=== PATIENT | male | born 1960 | race Caucasian/White ===

== ENCOUNTER 2016-03-31 08:40 | Outpatient (CLI) | payer OTHER | END 2016-03-31 10:00 | disposition home or self-care (01) | LOC: VM.RT 08:40 → VM.CARSTR 08:40 | PROVIDERS: ATTEND Internal Medicine | DX: R07.9 Chest pain, unspecified (principal) | CPT/HCPCS: 93017 ==

== ENCOUNTER 2020-12-15 15:31 | Emergency (ER) | payer BC, OTHER ==
[2020-12-15 15:48] VITALS: BP 144/94; PULSE 99
[2020-12-15] MEDS ORDERED: Orphenadrine 60 MG/2 ML Inj IM ONE (16:00)
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
[2020-12-15] MEDS ORDERED: Take Home: Cyclobenzaprine 10 MG Tab, 4 Tab Pack PO ONE (16:51)
== END 2020-12-15 17:00 | disposition home or self-care (01) ==
LOC: VM.ED 15:31
DX: S16.1XXA Strain of muscle, fascia and tendon at neck level, initial encounter (principal); S39.012A Strain of muscle, fascia and tendon of lower back, initial encounter; E66.9 Obesity, unspecified; Z88.5 Allergy status to narcotic agent; Z91.030 Bee allergy status; Z79.82 Long term (current) use of aspirin; Z79.899 Other long term (current) drug therapy; Y04.0XXA Assault by unarmed brawl or fight, initial encounter
CPT/HCPCS: 72040; 72100; 96372; 99283; 99283-25; A9270-GY; J2360

== ENCOUNTER 2021-03-24 11:37 | Inpatient (IN) | payer OTHER ==
[2021-03-24] MEDS ORDERED: Sodium Chloride 0.9% 1,000 ML IV SCH (12:00)
[2021-03-24 12:27] LABS: CHLORIDE,CL 100 mmol/L (98-107); SODIUM,NA 135 mmol/L (136-145)
--- NOTE | 2021-03-24 12:27 | EDM.PDOC ---
ED HPI GENERAL MEDICAL PROBLEM - General Chief Complaint: Respiratory Problem Stated Complaint: FEVER, COUGH, SORE THROAT Time Seen by Provider: 03/24/21 11:40 Source of Information: Reports: Patient History Limitations: Reports: No Limitations - History of Present Illness INITIAL COMMENTS - FREE TEXT/NARRATIVE: HAd COVID dx on 03/07/21 and monoclonal antibodies. States did well and went back to work. Now presents to ER with cough, fever, weakness and BP was low on arrival. Onset Date: 03/21/21 Duration: Getting Worse Location: Reports: Other (no pain) Worsens with: Reports: Movement Associated Symptoms: Reports: Cough, Fever/Chills, Shortness of Breath, Weakness - Related Data Allergies Allergy/AdvReac Type Severity Reaction Status Date / Time hydromorphone [From Dilaudid] Allergy Hypotension Verified 03/24/21 12:34 venom-honey bee Allergy Anaphylactic Verified 03/24/21 12:34 [bee venom (honey bee)] Shock fentanyl AdvReac Hypotension Verified 03/24/21 12:34 hydrocodone AdvReac Tachycardia Verified 03/24/21 12:34 Home Meds: Home Meds Aspirin [Low Dose Aspirin EC] 81 mg PO DAILY 07/18/13 [History] Glucosam/Chond/Collagen/Hyalur [Glucosamine Chondroitin] 1 each PO DAILY 07/18/13 [History] Nitroglycerin [Nitrostat] 1 tab SL ASDIRECTED PRN 07/18/13 [History] Folic Acid 1 mg PO DAILY 03/24/21 [History] Magnesium Oxide [Magnesium] 500 mg PO DAILY 03/24/21 [History] Methotrexate 2.5 mg PO Q7D 03/24/21 [History] Metoprolol Succinate [Toprol Xl] 100 mg PO DAILY 03/24/21 [History] atorvaSTATin Calcium [Lipitor] 20 mg PO BEDTIME 03/24/21 [History] lisinopriL [Lisinopril] 10 mg PO DAILY 03/24/21 [History] predniSONE [Prednisone] 2 mg PO DAILY 03/24/21 [History] Past Medical History - Past Health History Medical/Surgical History: Denies Medical/Surgical History Cardiovascular History: Reports: High Cholesterol, Hypertension Musculoskeletal History: Reports: Back Pain, Chronic Endocrine/Metabolic History: Reports: Obesity/BMI 30+ - Past Surgical History Musculoskeletal Surgical History: Reports: Other (See Below) Other Musculoskeletal Surgeries/Procedures:: Remote history of back surgery ED ROS GENERAL - Review of Systems Review Of Systems: See Below Constitutional: Reports: Fever, Malaise HEENT: Reports: No Symptoms Respiratory: Reports: Shortness of Breath, Cough Cardiovascular: Reports: Blood Pressure Problem Endocrine: Reports: No Symptoms GI/Abdominal: Reports: No Symptoms : Reports: No Symptoms Musculoskeletal: Reports: No Symptoms Skin: Reports: No Symptoms Neurological: Reports: No Symptoms Psychiatric: Reports: No Symptoms Hematologic/Lymphatic: Reports: No Symptoms Immunologic: Reports: No Symptoms ED EXAM, GENERAL - Physical Exam Exam: See Below Exam Limited By: No Limitations General Appearance: Alert, No Apparent Distress, Other (general appearance of not feeling well) Eye Exam: Bilateral Eye: EOMI Ears: Normal External Exam Nose: No Blood Throat/Mouth: Normal Voice, No Airway Compromise Head: Atraumatic, Normocephalic Neck: Normal Inspection, Supple, Non-Tender, Full Range of Motion Respiratory/Chest: No Respiratory Distress, Chest Non-Tender (diminished, coarse), Decreased Breath Sounds (diminished breath sounds, ) Cardiovascular: Regular Rate, Rhythm GI/Abdominal: Soft, Non-Tender, No Distention Back Exam: Full Range of Motion Extremities: Normal Range of Motion, Other (trace pretibial edema) Neurological: Alert, Oriented Psychiatric: Normal Affect, Normal Mood Skin Exam: Warm, Dry, Intact, Normal Color, No Rash Lymphatic: No Adenopathy #1 Interpretation Rhythm: NSR QRS: RBBB Course - Vital Signs Last Recorded V/S: Last Vital Signs Temp 100.6 F 03/24/21 14:10 Pulse 63 03/24/21 14:16 Resp 20 03/24/21 14:16 BP 105/43 L 03/24/21 14:16 Pulse Ox 90 L 03/24/21 14:16 - Orders/Labs/Meds Orders: Active Orders 24 hr Category Date Time Status CULTURE BLOOD [BC] Stat Lab 03/24/21 14:54 Received CULTURE BLOOD [BC] Stat Lab 03/24/21 15:00 Received Sodium Chloride 0.9% [Normal Saline] 1,000 ml Med 03/24/21 12:00 Active IV ASDIRECTED Blood Culture x2 Reflex Set [OM.PC] Stat Oth 03/24/21 14:46 Ordered Medication Orders Sodium Chloride (Normal Saline) 1,000 mls @ 250 mls/hr IV ASDIRECTED ELAYNE Last Admin: 03/24/21 11:55 Dose: 250 mls/hr Documented by: INDU Labs: Laboratory Tests 03/24/21 03/24/21 03/24/21 Range/Units 11:49 11:49 11:49 WBC 8.8 (4.0-10.0) x10^3/uL RBC 5.42 (4.5-6.0) x10^6/uL Hgb 16.6 (14.0-18.0) g/dL Hct 49.0 (40.0-52.0) % MCV 90.4 (78.0-93.0) fL MCH 30.6 (26.0-32.0) pg MCHC 33.9 (32.0-36.0) g/dL RDW Coeff of Mildred 13.3 (10.0-15.0) % Plt Count 173 (130-400) x10^3/uL Immature Gran % (Auto) 1.10 H (0.00-0.43) % Neut % (Auto) 81.9 H (50.0-80.0) % Lymph % (Auto) 12.5 L (25.0-50.0) % Gila % (Auto) 4.2 (2.0-11.0) % Eos % (Auto) 0.2 (0.0-4.0) % Baso % (Auto) 0.1 L (0.2-1.2) % Neut # (Auto) 7.2 (1.8-7.7) x10^3/uL Lymph # (Auto) 1.1 (1.0-4.8) x10^3/uL Gila # (Auto) 0.4 (0.0-0.8) x10^3/uL Eos # (Auto) 0.0 (0.0-0.5) x10^3/uL Baso # (Auto) 0.0 (0.0-0.2) x10^3/uL Immature Gran # (Auto) 0.10 H (0.00-0.07) x10^3/uL D-Dimer, Quantitative (<=0.58) mg/LFEU Sodium 135 L (136-145) mmol/L Potassium 3.6 (3.5-5.1) mmol/L Chloride 100 (98-107) mmol/L Carbon Dioxide 30 (21-32) mmol/L Anion Gap 8.6 (5-15) mmol/L BUN 23 H (7-18) mg/dL Creatinine 1.3 (0.70-1.30) mg/dL Est Cr Clr Drug Dosing TNP Estimated GFR (MDRD) 56 Glucose 79 (70-99) mg/dL Lactic Acid 1.2 (0.4-2.0) mmol/L Calcium 8.8 (8.5-10.1) mg/dL Corrected Calcium 9.6 (8.5-10.1) mg/dL Total Bilirubin 0.5 (0.2-1.0) mg/dL AST 48 H (15-37) U/L ALT 103 H (16-63) U/L Alkaline Phosphatase 97 (46-116) U/L Troponin I High Sens (<=76) ng/L Total Protein 7.2 (6.4-8.2) g/dL Albumin 3.0 L (3.4-5.0) g/dL Globulin 4.2 Albumin/Globulin Ratio 0.71 Procalcitonin (0.1-0.50) ng/mL Influenza Type A RNA (NEGATIVE) RSV RNA (INAAT) (NEGATIVE) Influenza Type B RNA (NEGATIVE) SARS-CoV-2 RNA (REJI) (NEGATIVE) 03/24/21 03/24/21 03/24/21 Range/Units 11:49 11:49 11:49 WBC (4.0-10.0) x10^3/uL RBC (4.5-6.0) x10^6/uL Hgb (14.0-18.0) g/dL Hct (40.0-52.0) % MCV (78.0-93.0) fL MCH (26.0-32.0) pg MCHC (32.0-36.0) g/dL RDW Coeff of Mildred (10.0-15.0) % Plt Count (130-400) x10^3/uL Immature Gran % (Auto) (0.00-0.43) % Neut % (Auto) (50.0-80.0) % Lymph % (Auto) (25.0-50.0) % Gila % (Auto) (2.0-11.0) % Eos % (Auto) (0.0-4.0) % Baso % (Auto) (0.2-1.2) % Neut # (Auto) (1.8-7.7) x10^3/uL Lymph # (Auto) (1.0-4.8) x10^3/uL Gila # (Auto) (0.0-0.8) x10^3/uL Eos # (Auto) (0.0-0.5) x10^3/uL Baso # (Auto) (0.0-0.2) x10^3/uL Immature Gran # (Auto) (0.00-0.07) x10^3/uL D-Dimer, Quantitative 2.61 H (<=0.58) mg/LFEU Sodium (136-145) mmol/L Potassium (3.5-5.1) mmol/L Chloride (98-107) mmol/L Carbon Dioxide (21-32) mmol/L Anion Gap (5-15) mmol/L BUN (7-18) mg/dL Creatinine (0.70-1.30) mg/dL Est Cr Clr Drug Dosing Estimated GFR (MDRD) Glucose (70-99) mg/dL Lactic Acid (0.4-2.0) mmol/L Calcium (8.5-10.1) mg/dL Corrected Calcium (8.5-10.1) mg/dL Total Bilirubin (0.2-1.0) mg/dL AST (15-37) U/L ALT (16-63) U/L Alkaline Phosphatase (46-116) U/L Troponin I High Sens 43 (<=76) ng/L Total Protein (6.4-8.2) g/dL Albumin (3.4-5.0) g/dL Globulin Albumin/Globulin Ratio Procalcitonin <0.05 L (0.1-0.50) ng/mL Influenza Type A RNA (NEGATIVE) RSV RNA (INAAT) (NEGATIVE) Influenza Type B RNA (NEGATIVE) SARS-CoV-2 RNA (REJI) (NEGATIVE) 03/24/21 Range/Units 12:03 WBC (4.0-10.0) x10^3/uL RBC (4.5-6.0) x10^6/uL Hgb (14.0-18.0) g/dL Hct (40.0-52.0) % MCV (78.0-93.0) fL MCH (26.0-32.0) pg MCHC (32.0-36.0) g/dL RDW Coeff of Mildred (10.0-15.0) % Plt Count (130-400) x10^3/uL Immature Gran % (Auto) (0.00-0.43) % Neut % (Auto) (50.0-80.0) % Lymph % (Auto) (25.0-50.0) % Gila % (Auto) (2.0-11.0) % Eos % (Auto) (0.0-4.0) % Baso % (Auto) (0.2-1.2) % Neut # (Auto) (1.8-7.7) x10^3/uL Lymph # (Auto) (1.0-4.8) x10^3/uL [place] # (Auto) (0.0-0.8) x10^3/uL Eos # (Auto) (0.0-0.5) x10^3/uL Baso # (Auto) (0.0-0.2) x10^3/uL Immature Gran # (Auto) (0.00-0.07) x10^3/uL D-Dimer, Quantitative (<=0.58) mg/LFEU Sodium (136-145) mmol/L Potassium (3.5-5.1) mmol/L Chloride (98-107) mmol/L Carbon Dioxide (21-32) mmol/L Anion Gap (5-15) mmol/L BUN (7-18) mg/dL Creatinine (0.70-1.30) mg/dL Est Cr Clr Drug Dosing Estimated GFR (MDRD) Glucose (70-99) mg/dL Lactic Acid (0.4-2.0) mmol/L Calcium (8.5-10.1) mg/dL Corrected Calcium (8.5-10.1) mg/dL Total Bilirubin (0.2-1.0) mg/dL AST (15-37) U/L ALT (16-63) U/L Alkaline Phosphatase (46-116) U/L Troponin I High Sens (<=76) ng/L Total Protein (6.4-8.2) g/dL Albumin (3.4-5.0) g/dL Globulin Albumin/Globulin Ratio Procalcitonin (0.1-0.50) ng/mL Influenza Type A RNA Negative (NEGATIVE) RSV RNA (INAAT) Negative (NEGATIVE) Influenza Type B RNA Negative (NEGATIVE) SARS-CoV-2 RNA (REJI) Positive H (NEGATIVE) Meds: Medications Generic Name Dose Route Start Last Admin Trade Name Freq PRN Reason Stop Dose Admin Sodium Chloride 1,000 mls @ 250 mls/hr 03/24/21 12:00 03/24/21 11:55 Normal Saline IV 250 mls/hr ASDIRECTED ELAYNE Administration Discontinued Medications Generic Name Dose Route Start Last Admin Trade Name Freq PRN Reason Stop Dose Admin Dexamethasone 4 mg 03/24/21 14:20 03/24/21 14:23 Dexamethasone 4 Mg/Ml Sdv IVPUSH 03/24/21 14:21 4 mg ONETIME ONE Administration Ibuprofen 400 mg 03/24/21 13:03 03/24/21 13:10 Ibuprofen 200 Mg Tab PO 03/24/21 13:04 400 mg ONETIME ONE Administration Iopamidol 100 ml 03/24/21 14:00 03/24/21 14:04 Iopamidol 755 Mg/Ml 100 Ml Bottle IVPUSH 03/24/21 14:01 100 ml ONETIME ONE Administration - Re-Assessments/Exams Free Text/Narrative Re-Assessment/Exam: 03/24/21 12:59 D-dimer 2.61, pt remains hypotensive, ordering CT to r/o PE. Discussed case with Dr. Toya Guallpa who is seeing [facility] patients today; agrees with plan. 03/24/21 15:07 Dr. Toya Guallpa accepted pt for admission. Departure - Departure Time of Disposition: 15:10 Disposition: Admitted As Inpatient 66 Condition: Fair Clinical Impression: Hypotension Qualifiers: Hypotension type: unspecified hypotension type Qualified Code(s): I95.9 - Hypotension, unspecified Pneumonia Qualifiers: Pneumonia type: due to COVID-19 virus Qualified Code(s): U07.1 - COVID-19 - Discharge Information Sepsis Event Note (ED) - Focused Exam Vital Signs: Vital Signs Temp Temp Pulse Resp BP Pulse Ox 12/27/21 14:16 63 20 105/43 L 90 L 03/24/21 14:10 100.6 F 03/24/21 14:05 100.6 F 03/24/21 14:01 63 20 95/43 L 91 L 03/24/21 13:01 101.3 F H 03/24/21 12:51 60 24 H 94/48 L 94 L 03/24/21 12:06 68 24 H 106/59 L 92 L 03/24/21 11:40 100.0 F 77 38 H 93/58 L 95 - Problem List & Annotations (1) Hypotension SNOMED Code(s): 75132257 Code(s): I95.9 - HYPOTENSION, UNSPECIFIED Status: Acute Current Visit: Y es Qualifiers: Hypotension type: unspecified hypotension type Qualified Code(s): I95.9 - Hypotension, unspecified (2) Pneumonia SNOMED Code(s): 631916377 Code(s): J18.9 - PNEUMONIA, UNSPECIFIED ORGANISM Status: Acute Current Visit: Yes Qualifiers: Pneumonia type: due to COVID-19 virus Qualified Code(s): U07.1 - COVID-19; J12.82 - Pneumonia due to coronavirus disease 2019 - Problem List Review Problem List Initiated/Reviewed/Updated: Yes - My Orders Last 24 Hours: My Active Orders 03/24/21 12:00 Sodium Chloride 0.9% [Normal Saline] 1,000 ml IV ASDIRECTED - Assessment/Plan Last 24 Hours: My Active Orders 03/24/21 12:00 Sodium Chloride 0.9% [Normal Saline] 1,000 ml IV ASDIRECTED
[2021-03-24 12:28] LABS: ANION GAP 8.6 mmol/L (5-15)
[2021-03-24 12:46] LABS: CORONAVIRUS COVID-19 NAA POSITIVE (NEGATIVE); RESPIRATORY SYNCYTIAL VIR NAA NEGATIVE (NEGATIVE)
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
[2021-03-24] MEDS ORDERED: Ibuprofen 200 MG Tab PO ONE (13:03)
[2021-03-24] MEDS ORDERED: Iopamidol 755 Mg/ML 100 ML Bottle IVPUSH ONE (14:00)
--- NOTE | 2021-03-24 14:11 | CT ---
[id number] CT/CTA Chest Exam: CTA Chest Clinical Data: POSITIVE D-DIMER HYPOTENSION COVID COMPARISON: NO PREVIOUS SIMILAR EXAM IS AVAILABLE FINDINGS: Extensive bilateral infiltrates are seen There is no pulmonary embolus The is no mediastinal mass or adenopathy IMPRESSION: BILATERAL PNEUMONIA NO PULMONARY EMBOLI Mohan King MD 03/24/21 6330 Thank you for allowing us to participate in the care of your patient.
[2021-03-24] MEDS ORDERED: Dexamethasone 4 MG/ML SDV IVPUSH ONE (14:20)
[2021-03-24] MEDS ORDERED: Nitroglycerin 0.4 MG Tab.SL SL PRN (15:17)
[2021-03-24] MEDS ORDERED: Ondansetron 4 MG Tab.DIS PO PRN (15:21)
[2021-03-24] MEDS ORDERED: Acetaminophen 325 MG Tab PO PRN (15:21)
[2021-03-24] MEDS: Zinc Sulfate 220 MG Cap PO SCH (16:27)
[2021-03-24] MEDS: Cholecalciferol (Vitamin D3) 25 MCG Tab PO SCH (16:27)
[2021-03-24] MEDS: dexAMETHasone 2 MG, dexAMETHasone 4 MG PO SCH ×2 (16:27)
[2021-03-24] MEDS: Ascorbic Acid 500 MG Tab PO SCH ×2 (16:27→20:29)
[2021-03-24] MEDS: Azithromycin 250 MG Tab PO SCH (16:28)
[2021-03-24] MEDS: cefTRIAXone 1 GM Vial IVPUSH SCH (16:28)
[2021-03-24] MEDS: Enoxaparin 40 MG/0.4 ML Syringe SUBCUT SCH (18:08)
[2021-03-24] MEDS: atorvaSTATin 10 MG Tab PO SCH (20:29)
--- NOTE | 2021-03-24 22:35 | HP ---
CHIEF COMPLAINT: Fever, cough, and sore throat. HISTORY OF PRESENT ILLNESS: This is a 61-year-old male with history of COVID- 19, who received monoclonal antibodies on 03/07. He was feeling much better after a few days and in fact was able to return to work, then 3 to 4 days ago, around 03/20, he started getting worse again. He did feel lightheaded and dizzy at times. He has been able to eat and drink. He has actually been quite thirsty and drinking a lot. He did get prescribed dexamethasone 6 mg daily and he finished that a couple of days ago. Even though he has underlying rheumatoid arthritis, he continued with methotrexate and took the 25 mg weekly dose last , also the ; and he restarted his 2 mg daily prednisone dose that he normally takes. He did not take his blood pressure pills this morning, but came into the ER. His blood pressure was 80 systolic. He got 1 L of IV fluids. He feels short of breath, but he did not have sats below 90% and he had a 101.3 fever. The patient did get ibuprofen in the ER due to elevated D-dimer of 2.6. He had a CT PE protocol, which did show the bilateral COVID pneumonia. He has had a procalcitonin that is normal. COVID test remains positive. He has not had any burning or pain with urination. No other symptoms of infection. He has not been vaccinated for COVID or influenza. ALLERGIES: Include hydromorphone, venom from honey bees, fentanyl, and hydrocodone. MEDICATIONS: His medication list is reviewed from home. He is on glucosamine, lisinopril 10 mg daily, methotrexate 25 mg every 7 days, prednisone 2 mg daily, aspirin 81 mg daily, Lipitor 20 mg at bedtime, folic acid 1 mg daily, magnesium 500 mg daily, metoprolol 100 mg daily, and nitroglycerin as needed. PAST MEDICAL HISTORY: He denies any history of heart attacks. He has had a negative angiogram in 2013. He has had essential hypertension. He has rheumatoid arthritis, on the methotrexate. He has obesity. He has history of hyperlipidemia. He has erectile dysfunction. PAST SURGICAL HISTORY: He has had to have hand surgery. He has had previous colonoscopies. He has had a remote back surgery. FAMILY HISTORY: His son was recently hospitalized with COVID also. SOCIAL HISTORY: The patient denies any excessive alcohol use; did say maybe 1 bourbon daily. No smoking. 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 He is . REVIEW OF SYSTEMS: General: The patient stated he was not overly fatigued. He got his energy back after his initial COVID. He has had the fever. HEENT: No trouble swallowing. Cardiac: No chest pain. No palpitations. Respiratory: He continues to have shortness of breath. No worsening of cough. Abdominal: He has had some diarrhea for the past 2 weeks, 3 to 4 times a day, ever since he has had COVID. No blood in the stool. No black stools. Hemorrhoids have been bothering him. Otherwise, all systems reviewed and found to be negative unless otherwise stated. LABORATORY DATA: Lab work shows white count normal at 8.8, hemoglobin 16.6, platelets 173. D-dimer 2.6. Sodium 135, potassium 3.6, chloride 100, bicarb 30, BUN 23, creatinine 1.3, glucose 79, lactic 1.2, bilirubin 0.5, AST 48, ALT 103, alkaline phosphatase 97, albumin 3. CRP 5.5. Procalcitonin less than 0.05. RSV influenza negative. Chest x-ray, very suspicious for COVID pneumonia. CT also suspicious for COVID pneumonia, negative for PE. ASSESSMENT: 1. COVID-19, day 17 from his monoclonal antibody infusion, but the patient is immunosuppressed. Discussed with the patient and infectious disease specialist in [place]. Recommendations were for remdesivir, the patient absolutely refuses; and baricitinib, which will be given 4 mg daily for 14 days or until discharge. We will repeat lab work including another C- reactive protein and procalcitonin tomorrow. 2. Fever, possibly secondary bacterial infection given this far out and immunosuppression. We will give him intravenous Rocephin and Zithromax. Blood cultures, sputum cultures will be sent. Urinalysis ordered. 3. Hypotension. Could be an element of adrenal insufficiency given he has been on steroids; however, he is only on 2 mg of prednisone chronically. We will give him the dexamethasone 6 mg daily for 10 days, but if further hypotensive, I will put him on hydrocortisone. 4. Essential hypertension. Blood pressure is low. Hold lisinopril. Continue metoprolol, but only 50 mg daily with holding parameters. The patient has no history of atrial fibrillation or tachycardia. 5. Hyperlipidemia. Continue his Lipitor. Liver enzymes are only mildly elevated. 6. Mild liver function test elevation. Repeat liver function tests in the morning. This could be related to recent COVID infection. 7. Obesity. 8. Rheumatoid arthritis. We will hold the methotrexate. PLAN: The patient will be admitted to acute cares. He got 1 L of IV fluids. We will not order any further IV fluids. We will monitor him closely for his respiratory status and blood pressure. He will be on Lovenox for DVT prophylaxis. He will be on the baricitinib for his COVID-19 along with dexamethasone given his underlying immunosuppression and RA. I will also start him on vitamin D, zinc, and vitamin C prophylactically. Anticipate the patient will need at least a 2-night stay. He is agreeable with this plan. Code level 1. MKA: 03/24/2021 15:43:58 MODL: 03/24/2021 22:29:52 /[id number]
[2021-03-25 07:32] LABS: CHLORIDE,CL 103 mmol/L (98-107); SODIUM,NA 137 mmol/L (136-145)
[2021-03-25 07:37] LABS: ANION GAP 13.5 mmol/L (5-15)
[2021-03-25] MEDS ORDERED: METOPROLOL SUCCINATE 100 MG PO SCH (08:00)
[2021-03-25] MEDS: dexAMETHasone 2 MG, dexAMETHasone 4 MG PO SCH ×2 (08:16)
[2021-03-25] MEDS: Cholecalciferol (Vitamin D3) 25 MCG Tab PO SCH (08:17)
[2021-03-25] MEDS: Ascorbic Acid 500 MG Tab PO SCH ×2 (08:17→20:39)
[2021-03-25] MEDS: Aspirin 81 MG Tab.EC PO SCH (08:17)
[2021-03-25] MEDS: Magnesium Oxide 400 MG Tab PO SCH (08:17)
[2021-03-25] MEDS: Zinc Sulfate 220 MG Cap PO SCH (08:17)
[2021-03-25] MEDS: Folic Acid 1 MG Tab PO SCH (08:17)
[2021-03-25] MEDS: Metoprolol Succinate 50 MG Tab.ER PO SCH ×2 (08:19→08:24)
--- NOTE | 2021-03-25 08:43 | PCM.PN ---
- General Info Date of Service: 03/25/21 Admission Dx/Problem (Free Text): Covid 19 - Day !7 Immunosuppressed RA Hypertension Subjective Update: Patient continues to feel short of breath and weak. Appetite is normal. Unaware of fevers or chills. - Review of Systems General: Reports: Weakness HEENT: Reports: No Symptoms Pulmonary: Reports: Shortness of Breath, Cough Cardiovascular: Denies: Chest Pain Gastrointestinal: Denies: Abdominal Pain Genitourinary: Reports: No Symptoms Musculoskeletal: Reports: Joint Pain Skin: Reports: No Symptoms Neurological: Reports: No Symptoms, Weakness Psychiatric: Reports: No Symptoms - Patient Data Vitals - Most Recent: Last Vital Signs Temp 36.6 C 03/25/21 06:00 Pulse 52 L 03/25/21 08:24 Resp 14 03/25/21 06:00 BP 124/74 03/25/21 08:24 Pulse Ox 90 L 03/25/21 06:00 Weight - Most Recent: 130.136 kg I&O - Last 24 Hours: Intake & Output 03/24/21 03/25/21 03/25/21 22:59 06:59 14:59 Intake Total 120 Balance 120 Lab Results Last 24 Hours: Laboratory Results - last 24 hr 03/24/21 03/24/21 03/24/21 Range/Units 11:49 11:49 11:49 WBC 8.8 (4.0-10.0) x10^3/uL RBC 5.42 (4.5-6.0) x10^6/uL Hgb 16.6 (14.0-18.0) g/dL Hct 49.0 (40.0-52.0) % MCV 90.4 (78.0-93.0) fL MCH 30.6 (26.0-32.0) pg MCHC 33.9 (32.0-36.0) g/dL RDW Coeff of Mildred 13.3 (10.0-15.0) % Plt Count 173 (130-400) x10^3/uL Immature Gran % (Auto) 1.10 H (0.00-0.43) % Neut % (Auto) 81.9 H (50.0-80.0) % Lymph % (Auto) 12.5 L (25.0-50.0) % [place] % (Auto) 4.2 (2.0-11.0) % Eos % (Auto) 0.2 (0.0-4.0) % Baso % (Auto) 0.1 L (0.2-1.2) % Neut # (Auto) 7.2 (1.8-7.7) x10^3/uL Lymph # (Auto) 1.1 (1.0-4.8) x10^3/uL [place] # (Auto) 0.4 (0.0-0.8) x10^3/uL Eos # (Auto) 0.0 (0.0-0.5) x10^3/uL Baso # (Auto) 0.0 (0.0-0.2) x10^3/uL Immature Gran # (Auto) 0.10 H (0.00-0.07) x10^3/uL D-Dimer, Quantitative (<=0.58) mg/LFEU Sodium 135 L (136-145) mmol/L Potassium 3.6 (3.5-5.1) mmol/L Chloride 100 (98-107) mmol/L Carbon Dioxide 30 (21-32) mmol/L Anion Gap 8.6 (5-15) mmol/L BUN 23 H (7-18) mg/dL Creatinine 1.3 (0.70-1.30) mg/dL Est Cr Clr Drug Dosing TNP Estimated GFR (MDRD) 56 Glucose 79 (70-99) mg/dL Lactic Acid 1.2 (0.4-2.0) mmol/L Calcium 8.8 (8.5-10.1) mg/dL Corrected Calcium 9.6 (8.5-10.1) mg/dL Total Bilirubin 0.5 (0.2-1.0) mg/dL AST 48 H (15-37) U/L ALT 103 H (16-63) U/L Alkaline Phosphatase 97 (46-116) U/L Troponin I High Sens (<=76) ng/L C-Reactive Protein (<=0.9) mg/dL Total Protein 7.2 (6.4-8.2) g/dL Albumin 3.0 L (3.4-5.0) g/dL Globulin 4.2 Albumin/Globulin Ratio 0.71 Procalcitonin (0.1-0.50) ng/mL Urine Color (YELLOW) Urine Appearance (CLEAR) Urine pH (5.0-8.0) Ur Specific [place] Urine Protein (NEGATIVE) mg/dL Urine Glucose (UA) (NEGATIVE) mg/dL Urine Ketones (NEGATIVE) mg/dL Urine Occult Blood (NEGATIVE) Urine Nitrite (NEGATIVE) Urine Bilirubin (NEGATIVE) Urine Urobilinogen (0.2) EU/dL Ur Leukocyte Esterase (NEGATIVE) Influenza Type A RNA (NEGATIVE) RSV RNA (INAAT) (NEGATIVE) Influenza Type B RNA (NEGATIVE) SARS-CoV-2 RNA (REJI) (NEGATIVE) 03/24/21 03/24/21 03/24/21 Range/Units 11:49 11:49 11:49 WBC (4.0-10.0) x10^3/uL RBC (4.5-6.0) x10^6/uL Hgb (14.0-18.0) g/dL Hct (40.0-52.0) % MCV (78.0-93.0) fL MCH (26.0-32.0) pg MCHC (32.0-36.0) g/dL RDW Coeff of Mildred (10.0-15.0) % Plt Count (130-400) x10^3/uL Immature Gran % (Auto) (0.00-0.43) % Neut % (Auto) (50.0-80.0) % Lymph % (Auto) (25.0-50.0) % [place] % (Auto) (2.0-11.0) % Eos % (Auto) (0.0-4.0) % Baso % (Auto) (0.2-1.2) % Neut # (Auto) (1.8-7.7) x10^3/uL Lymph # (Auto) (1.0-4.8) x10^3/uL [place] # (Auto) (0.0-0.8) x10^3/uL Eos # (Auto) (0.0-0.5) x10^3/uL Baso # (Auto) (0.0-0.2) x10^3/uL Immature Gran # (Auto) (0.00-0.07) x10^3/uL D-Dimer, Quantitative 2.61 H (<=0.58) mg/LFEU Sodium (136-145) mmol/L Potassium (3.5-5.1) mmol/L Chloride (98-107) mmol/L Carbon Dioxide (21-32) mmol/L Anion Gap (5-15) mmol/L BUN (7-18) mg/dL Creatinine (0.70-1.30) mg/dL Est Cr Clr Drug Dosing Estimated GFR (MDRD) Glucose (70-99) mg/dL Lactic Acid (0.4-2.0) mmol/L Calcium (8.5-10.1) mg/dL Corrected Calcium (8.5-10.1) mg/dL Total Bilirubin (0.2-1.0) mg/dL AST (15-37) U/L ALT (16-63) U/L Alkaline Phosphatase (46-116) U/L Troponin I High Sens 43 (<=76) ng/L C-Reactive Protein (<=0.9) mg/dL Total Protein (6.4-8.2) g/dL Albumin (3.4-5.0) g/dL Globulin Albumin/Globulin Ratio Procalcitonin <0.05 L (0.1-0.50) ng/mL Urine Color (YELLOW) Urine Appearance (CLEAR) Urine pH (5.0-8.0) Ur Specific [place] Urine Protein (NEGATIVE) mg/dL Urine Glucose (UA) (NEGATIVE) mg/dL Urine Ketones (NEGATIVE) mg/dL Urine Occult Blood (NEGATIVE) Urine Nitrite (NEGATIVE) Urine Bilirubin (NEGATIVE) Urine Urobilinogen (0.2) EU/dL Ur Leukocyte Esterase (NEGATIVE) Influenza Type A RNA (NEGATIVE) RSV RNA (INAAT) (NEGATIVE) Influenza Type B RNA (NEGATIVE) SARS-CoV-2 RNA (REJI) (NEGATIVE) 03/24/21 03/24/21 03/24/21 Range/Units 12:03 14:54 17:25 WBC (4.0-10.0) x10^3/uL RBC (4.5-6.0) x10^6/uL Hgb (14.0-18.0) g/dL Hct (40.0-52.0) % MCV (78.0-93.0) fL MCH (26.0-32.0) pg MCHC (32.0-36.0) g/dL RDW Coeff of Mildred (10.0-15.0) % Plt Count (130-400) x10^3/uL Immature Gran % (Auto) (0.00-0.43) % Neut % (Auto) (50.0-80.0) % Lymph % (Auto) (25.0-50.0) % [place] % (Auto) (2.0-11.0) % Eos % (Auto) (0.0-4.0) % Baso % (Auto) (0.2-1.2) % Neut # (Auto) (1.8-7.7) x10^3/uL Lymph # (Auto) (1.0-4.8) x10^3/uL [place] # (Auto) (0.0-0.8) x10^3/uL Eos # (Auto) (0.0-0.5) x10^3/uL Baso # (Auto) (0.0-0.2) x10^3/uL Immature Gran # (Auto) (0.00-0.07) x10^3/uL D-Dimer, Quantitative (<=0.58) mg/LFEU Sodium (136-145) mmol/L Potassium (3.5-5.1) mmol/L Chloride (98-107) mmol/L Carbon Dioxide (21-32) mmol/L Anion Gap (5-15) mmol/L BUN (7-18) mg/dL Creatinine (0.70-1.30) mg/dL Est Cr Clr Drug Dosing Estimated GFR (MDRD) Glucose (70-99) mg/dL Lactic Acid (0.4-2.0) mmol/L Calcium (8.5-10.1) mg/dL Corrected Calcium (8.5-10.1) mg/dL Total Bilirubin (0.2-1.0) mg/dL AST (15-37) U/L ALT (16-63) U/L Alkaline Phosphatase (46-116) U/L Troponin I High Sens (<=76) ng/L C-Reactive Protein 5.5 H (<=0.9) mg/dL Total Protein (6.4-8.2) g/dL Albumin (3.4-5.0) g/dL Globulin Albumin/Globulin Ratio Procalcitonin (0.1-0.50) ng/mL Urine Color Dark yellow H (YELLOW) Urine Appearance Clear (CLEAR) Urine pH 5.5 (5.0-8.0) Ur Specific [place] 1.015 Urine Protein Negative (NEGATIVE) mg/dL Urine Glucose (UA) Negative (NEGATIVE) mg/dL Urine Ketones Negative (NEGATIVE) mg/dL Urine Occult Blood Negative (NEGATIVE) Urine Nitrite Negative (NEGATIVE) Urine Bilirubin Negative (NEGATIVE) Urine Urobilinogen 0.2 (0.2) EU/dL Ur Leukocyte Esterase Negative (NEGATIVE) Influenza Type A RNA Negative (NEGATIVE) RSV RNA (INAAT) Negative (NEGATIVE) Influenza Type B RNA Negative (NEGATIVE) SARS-CoV-2 RNA (REJI) Positive H (NEGATIVE) 03/25/21 03/25/21 03/25/21 Range/Units 06:40 06:40 06:40 WBC 4.6 (4.0-10.0) x10^3/uL RBC 5.11 (4.5-6.0) x10^6/uL Hgb 15.9 (14.0-18.0) g/dL Hct 45.8 (40.0-52.0) % MCV 89.6 (78.0-93.0) fL MCH 31.1 (26.0-32.0) pg MCHC 34.7 (32.0-36.0) g/dL RDW Coeff of Mildred 13.2 (10.0-15.0) % Plt Count 159 (130-400) x10^3/uL Immature Gran % (Auto) 1.90 H (0.00-0.43) % Neut % (Auto) 84.1 H (50.0-80.0) % Lymph % (Auto) 10.6 L (25.0-50.0) % [place] % (Auto) 3.4 (2.0-11.0) % Eos % (Auto) 0.0 (0.0-4.0) % Baso % (Auto) 0.0 L (0.2-1.2) % Neut # (Auto) 3.9 (1.8-7.7) x10^3/uL Lymph # (Auto) 0.5 L (1.0-4.8) x10^3/uL [place] # (Auto) 0.2 (0.0-0.8) x10^3/uL Eos # (Auto) 0.0 (0.0-0.5) x10^3/uL Baso # (Auto) 0.0 (0.0-0.2) x10^3/uL Immature Gran # (Auto) 0.09 H (0.00-0.07) x10^3/uL D-Dimer, Quantitative (<=0.58) mg/LFEU Sodium 137 (136-145) mmol/L Potassium 4.5 (3.5-5.1) mmol/L Chloride 103 (98-107) mmol/L Carbon Dioxide 25 (21-32) mmol/L Anion Gap 13.5 (5-15) mmol/L BUN 21 H (7-18) mg/dL Creatinine 0.9 (0.70-1.30) mg/dL Est Cr Clr Drug Dosing 100.21 Estimated GFR (MDRD) > 60 Glucose 228 H (70-99) mg/dL Lactic Acid (0.4-2.0) mmol/L Calcium 8.9 (8.5-10.1) mg/dL Corrected Calcium 10.2 H (8.5-10.1) mg/dL Total Bilirubin 0.3 (0.2-1.0) mg/dL AST 27 (15-37) U/L ALT 78 H (16-63) U/L Alkaline Phosphatase 88 (46-116) U/L Troponin I High Sens (<=76) ng/L C-Reactive Protein 7.2 H (<=0.9) mg/dL Total Protein 6.6 (6.4-8.2) g/dL Albumin 2.4 L (3.4-5.0) g/dL Globulin 4.2 Albumin/Globulin Ratio 0.57 Procalcitonin (0.1-0.50) ng/mL Urine Color (YELLOW) Urine Appearance (CLEAR) Urine pH (5.0-8.0) Ur Specific [place] Urine Protein (NEGATIVE) mg/dL Urine Glucose (UA) (NEGATIVE) mg/dL Urine Ketones (NEGATIVE) mg/dL Urine Occult Blood (NEGATIVE) Urine Nitrite (NEGATIVE) Urine Bilirubin (NEGATIVE) Urine Urobilinogen (0.2) EU/dL Ur Leukocyte Esterase (NEGATIVE) Influenza Type A RNA (NEGATIVE) RSV RNA (INAAT) (NEGATIVE) Influenza Type B RNA (NEGATIVE) SARS-CoV-2 RNA (REJI) (NEGATIVE) 03/25/21 Range/Units 06:40 WBC (4.0-10.0) x10^3/uL RBC (4.5-6.0) x10^6/uL Hgb (14.0-18.0) g/dL Hct (40.0-52.0) % MCV (78.0-93.0) fL MCH (26.0-32.0) pg MCHC (32.0-36.0) g/dL RDW Coeff of Mildred (10.0-15.0) % Plt Count (130-400) x10^3/uL Immature Gran % (Auto) (0.00-0.43) % Neut % (Auto) (50.0-80.0) % Lymph % (Auto) (25.0-50.0) % [place] % (Auto) (2.0-11.0) % Eos % (Auto) (0.0-4.0) % Baso % (Auto) (0.2-1.2) % Neut # (Auto) (1.8-7.7) x10^3/uL Lymph # (Auto) (1.0-4.8) x10^3/uL [place] # (Auto) (0.0-0.8) x10^3/uL Eos # (Auto) (0.0-0.5) x10^3/uL Baso # (Auto) (0.0-0.2) x10^3/uL Immature Gran # (Auto) (0.00-0.07) x10^3/uL D-Dimer, Quantitative (<=0.58) mg/LFEU Sodium (136-145) mmol/L Potassium (3.5-5.1) mmol/L Chloride (98-107) mmol/L Carbon Dioxide (21-32) mmol/L Anion Gap (5-15) mmol/L BUN (7-18) mg/dL Creatinine (0.70-1.30) mg/dL Est Cr Clr Drug Dosing Estimated GFR (MDRD) Glucose (70-99) mg/dL Lactic Acid (0.4-2.0) mmol/L Calcium (8.5-10.1) mg/dL Corrected Calcium (8.5-10.1) mg/dL Total Bilirubin (0.2-1.0) mg/dL AST (15-37) U/L ALT (16-63) U/L Alkaline Phosphatase (46-116) U/L Troponin I High Sens (<=76) ng/L C-Reactive Protein (<=0.9) mg/dL Total Protein (6.4-8.2) g/dL Albumin (3.4-5.0) g/dL Globulin Albumin/Globulin Ratio Procalcitonin <0.05 L (0.1-0.50) ng/mL Urine Color (YELLOW) Urine Appearance (CLEAR) Urine pH (5.0-8.0) Ur Specific [place] Urine Protein (NEGATIVE) mg/dL Urine Glucose (UA) (NEGATIVE) mg/dL Urine Ketones (NEGATIVE) mg/dL Urine Occult Blood (NEGATIVE) Urine Nitrite (NEGATIVE) Urine Bilirubin (NEGATIVE) Urine Urobilinogen (0.2) EU/dL Ur Leukocyte Esterase (NEGATIVE) Influenza Type A RNA (NEGATIVE) RSV RNA (INAAT) (NEGATIVE) Influenza Type B RNA (NEGATIVE) SARS-CoV-2 RNA (REJI) (NEGATIVE) Med Orders - Current: Current Medications Acetaminophen (Acetaminophen 325 Mg Tab) 650 mg PO Q4H PRN PRN Reason: Pain (Mild 1-3)/fever Ascorbic Acid (Ascorbic Acid 500 Mg Tab) 500 mg PO BID [facility] Last Admin: 03/25/21 08:17 Dose: 500 mg Documented by: Aspirin (Aspirin 81 Mg Tab.Ec) 81 mg PO DAILY [facility] Last Admin: 03/25/21 08:17 Dose: 81 mg Documented by: Atorvastatin Calcium (Atorvastatin 10 Mg Tab) 20 mg PO BEDTIME [facility] Last Admin: 03/24/21 20:29 Dose: 20 mg Documented by: Azithromycin (Azithromycin 250 Mg Tab) 500 mg PO Q24H [facility] Last Admin: 03/24/21 16:28 Dose: 500 mg Documented by: Baricitinib (Baricitinib 2 Mg Tab) 4 mg PO DAILY [facility] Stop: 04/07/21 23:00 Last Admin: 03/24/21 20:29 Dose: Not Given Documented by: Ceftriaxone Sodium (Ceftriaxone 1 Gm Vial) 1 gm IVPUSH Q24H [facility] Last Admin: 12/27/21 16:28 Dose: 1 gm Documented by: Cholecalciferol (Cholecalciferol (Vitamin D3) 25 Mcg Tab) 50 mcg PO DAILY [facility] Last Admin: 03/25/21 08:17 Dose: 50 mcg Documented by: Dexamethasone 2 mg/ (Dexamethasone 4 mg) 6 mg PO DAILY [facility] Last Admin: 03/25/21 08:16 Dose: 6 mg Documented by: Enoxaparin Sodium (Enoxaparin 40 Mg/0.4 Ml Syringe) 40 mg SUBCUT Q24H [facility] Last Admin: 03/24/21 18:08 Dose: 40 mg Documented by: Folic Acid (Folic Acid 1 Mg Tab) 1 mg PO DAILY [facility] Last Admin: 03/25/21 08:17 Dose: 1 mg Documented by: Magnesium Oxide (Magnesium Oxide 400 Mg Tab) 400 mg PO DAILY [facility] Last Admin: 03/25/21 08:17 Dose: 400 mg Documented by: Metoprolol Succinate (Metoprolol Succinate 50 Mg Tab.Er) 50 mg PO DAILY [facility] Last Admin: 03/25/21 08:24 Dose: Not Given Documented by: Nitroglycerin (Nitroglycerin 0.4 Mg Tab.Sl) 0.4 mg SL ASDIRECTED PRN PRN Reason: Chest Pain Ondansetron HCl (Ondansetron 4 Mg Tab.Dis) 4 mg PO Q4H PRN PRN Reason: nausea, able to take PO Zinc Sulfate (Zinc Sulfate 220 Mg Cap) 220 mg PO DAILY [facility] Last Admin: 03/25/21 08:17 Dose: 220 mg Documented by: Discontinued Medications Dexamethasone (Dexamethasone 4 Mg/Ml Sdv) 4 mg IVPUSH ONETIME ONE Stop: 03/24/21 14:21 Last Admin: 03/24/21 14:23 Dose: 4 mg Documented by: Sodium Chloride (Normal Saline) 1,000 mls @ 250 mls/hr IV ASDIRECTED [facility] Last Admin: 03/24/21 11:55 Dose: 250 mls/hr Documented by: Ibuprofen (Ibuprofen 200 Mg Tab) 400 mg PO ONETIME ONE Stop: 03/24/21 13:04 Last Admin: 03/24/21 13:10 Dose: 400 mg Documented by: Iopamidol (Iopamidol 755 Mg/Ml 100 Ml Bottle) 100 ml IVPUSH ONETIME ONE Stop: 03/24/21 14:01 Last Admin: 03/24/21 14:04 Dose: 100 ml Documented by: Non-Formulary Medication (Metoprolol Succinate [Toprol Xl]) 100 mg PO DAILY [facility] - Exam Quality Assessment: Supplemental Oxygen General: Alert, Oriented HEENT: Pupils Equal Neck: +2 Carotid Pulse wo Bruit Lungs: Clear to Auscultation Cardiovascular: Regular Rate, Regular Rhythm GI/Abdominal Exam: Normal Bowel Sounds Skin: Warm, Dry Psy/Mental Status: Alert - Patient Data Lab Results Last 24 hrs: Laboratory Results - last 24 hr 03/24/21 03/24/21 03/24/21 Range/Units 11:49 11:49 11:49 WBC 8.8 (4.0-10.0) x10^3/uL RBC 5.42 (4.5-6.0) x10^6/uL Hgb 16.6 (14.0-18.0) g/dL Hct 49.0 (40.0-52.0) % MCV 90.4 (78.0-93.0) fL MCH 30.6 (26.0-32.0) pg MCHC 33.9 (32.0-36.0) g/dL RDW Coeff of Mildred 13.3 (10.0-15.0) % Plt Count 173 (130-400) x10^3/uL Immature Gran % (Auto) 1.10 H (0.00-0.43) % Neut % (Auto) 81.9 H (50.0-80.0) % Lymph % (Auto) 12.5 L (25.0-50.0) % [place] % (Auto) 4.2 (2.0-11.0) % Eos % (Auto) 0.2 (0.0-4.0) % Baso % (Auto) 0.1 L (0.2-1.2) % Neut # (Auto) 7.2 (1.8-7.7) x10^3/uL Lymph # (Auto) 1.1 (1.0-4.8) x10^3/uL [place] # (Auto) 0.4 (0.0-0.8) x10^3/uL Eos # (Auto) 0.0 (0.0-0.5) x10^3/uL Baso # (Auto) 0.0 (0.0-0.2) x10^3/uL Immature Gran # (Auto) 0.10 H (0.00-0.07) x10^3/uL D-Dimer, Quantitative (<=0.58) mg/LFEU Sodium 135 L (136-145) mmol/L Potassium 3.6 (3.5-5.1) mmol/L Chloride 100 (98-107) mmol/L Carbon Dioxide 30 (21-32) mmol/L Anion Gap 8.6 (5-15) mmol/L BUN 23 H (7-18) mg/dL Creatinine 1.3 (0.70-1.30) mg/dL Est Cr Clr Drug Dosing TNP Estimated GFR (MDRD) 56 Glucose 79 (70-99) mg/dL Lactic Acid 1.2 (0.4-2.0) mmol/L Calcium 8.8 (8.5-10.1) mg/dL Corrected Calcium 9.6 (8.5-10.1) mg/dL Total Bilirubin 0.5 (0.2-1.0) mg/dL AST 48 H (15-37) U/L ALT 103 H (16-63) U/L Alkaline Phosphatase 97 (46-116) U/L Troponin I High Sens (<=76) ng/L C-Reactive Protein (<=0.9) mg/dL Total Protein 7.2 (6.4-8.2) g/dL Albumin 3.0 L (3.4-5.0) g/dL Globulin 4.2 Albumin/Globulin Ratio 0.71 Procalcitonin (0.1-0.50) ng/mL Urine Color (YELLOW) Urine Appearance (CLEAR) Urine pH (5.0-8.0) Ur Specific [place] Urine Protein (NEGATIVE) mg/dL Urine Glucose (UA) (NEGATIVE) mg/dL Urine Ketones (NEGATIVE) mg/dL Urine Occult Blood (NEGATIVE) Urine Nitrite (NEGATIVE) Urine Bilirubin (NEGATIVE) Urine Urobilinogen (0.2) EU/dL Ur Leukocyte Esterase (NEGATIVE) Influenza Type A RNA (NEGATIVE) RSV RNA (INAAT) (NEGATIVE) Influenza Type B RNA (NEGATIVE) SARS-CoV-2 RNA (REJI) (NEGATIVE) 12/27/21 12/27/21 12/27/21 Range/Units 11:49 11:49 11:49 WBC (4.0-10.0) x10^3/uL RBC (4.5-6.0) x10^6/uL Hgb (14.0-18.0) g/dL Hct (40.0-52.0) % MCV (78.0-93.0) fL MCH (26.0-32.0) pg MCHC (32.0-36.0) g/dL RDW Coeff of Mildred (10.0-15.0) % Plt Count (130-400) x10^3/uL Immature Gran % (Auto) (0.00-0.43) % Neut % (Auto) (50.0-80.0) % Lymph % (Auto) (25.0-50.0) % [place] % (Auto) (2.0-11.0) % Eos % (Auto) (0.0-4.0) % Baso % (Auto) (0.2-1.2) % Neut # (Auto) (1.8-7.7) x10^3/uL Lymph # (Auto) (1.0-4.8) x10^3/uL [place] # (Auto) (0.0-0.8) x10^3/uL Eos # (Auto) (0.0-0.5) x10^3/uL Baso # (Auto) (0.0-0.2) x10^3/uL Immature Gran # (Auto) (0.00-0.07) x10^3/uL D-Dimer, Quantitative 2.61 H (<=0.58) mg/LFEU Sodium (136-145) mmol/L Potassium (3.5-5.1) mmol/L Chloride (98-107) mmol/L Carbon Dioxide (21-32) mmol/L Anion Gap (5-15) mmol/L BUN (7-18) mg/dL Creatinine (0.70-1.30) mg/dL Est Cr Clr Drug Dosing Estimated GFR (MDRD) Glucose (70-99) mg/dL Lactic Acid (0.4-2.0) mmol/L Calcium (8.5-10.1) mg/dL Corrected Calcium (8.5-10.1) mg/dL Total Bilirubin (0.2-1.0) mg/dL AST (15-37) U/L ALT (16-63) U/L Alkaline Phosphatase (46-116) U/L Troponin I High Sens 43 (<=76) ng/L C-Reactive Protein (<=0.9) mg/dL Total Protein (6.4-8.2) g/dL Albumin (3.4-5.0) g/dL Globulin Albumin/Globulin Ratio Procalcitonin <0.05 L (0.1-0.50) ng/mL Urine Color (YELLOW) Urine Appearance (CLEAR) Urine pH (5.0-8.0) Ur Specific [place] Urine Protein (NEGATIVE) mg/dL Urine Glucose (UA) (NEGATIVE) mg/dL Urine Ketones (NEGATIVE) mg/dL Urine Occult Blood (NEGATIVE) Urine Nitrite (NEGATIVE) Urine Bilirubin (NEGATIVE) Urine Urobilinogen (0.2) EU/dL Ur Leukocyte Esterase (NEGATIVE) Influenza Type A RNA (NEGATIVE) RSV RNA (INAAT) (NEGATIVE) Influenza Type B RNA (NEGATIVE) SARS-CoV-2 RNA (REJI) (NEGATIVE) 03/24/21 03/24/21 03/24/21 Range/Units 12:03 14:54 17:25 WBC (4.0-10.0) x10^3/uL RBC (4.5-6.0) x10^6/uL Hgb (14.0-18.0) g/dL Hct (40.0-52.0) % MCV (78.0-93.0) fL MCH (26.0-32.0) pg MCHC (32.0-36.0) g/dL RDW Coeff of Mildred (10.0-15.0) % Plt Count (130-400) x10^3/uL Immature Gran % (Auto) (0.00-0.43) % Neut % (Auto) (50.0-80.0) % Lymph % (Auto) (25.0-50.0) % [place] % (Auto) (2.0-11.0) % Eos % (Auto) (0.0-4.0) % Baso % (Auto) (0.2-1.2) % Neut # (Auto) (1.8-7.7) x10^3/uL Lymph # (Auto) (1.0-4.8) x10^3/uL [place] # (Auto) (0.0-0.8) x10^3/uL Eos # (Auto) (0.0-0.5) x10^3/uL Baso # (Auto) (0.0-0.2) x10^3/uL Immature Gran # (Auto) (0.00-0.07) x10^3/uL D-Dimer, Quantitative (<=0.58) mg/LFEU Sodium (136-145) mmol/L Potassium (3.5-5.1) mmol/L Chloride (98-107) mmol/L Carbon Dioxide (21-32) mmol/L Anion Gap (5-15) mmol/L BUN (7-18) mg/dL Creatinine (0.70-1.30) mg/dL Est Cr Clr Drug Dosing Estimated GFR (MDRD) Glucose (70-99) mg/dL Lactic Acid (0.4-2.0) mmol/L Calcium (8.5-10.1) mg/dL Corrected Calcium (8.5-10.1) mg/dL Total Bilirubin (0.2-1.0) mg/dL AST (15-37) U/L ALT (16-63) U/L Alkaline Phosphatase (46-116) U/L Troponin I High Sens (<=76) ng/L C-Reactive Protein 5.5 H (<=0.9) mg/dL Total Protein (6.4-8.2) g/dL Albumin (3.4-5.0) g/dL Globulin Albumin/Globulin Ratio Procalcitonin (0.1-0.50) ng/mL Urine Color Dark yellow H (YELLOW) Urine Appearance Clear (CLEAR) Urine pH 5.5 (5.0-8.0) Ur Specific [place] 1.015 Urine Protein Negative (NEGATIVE) mg/dL Urine Glucose (UA) Negative (NEGATIVE) mg/dL Urine Ketones Negative (NEGATIVE) mg/dL Urine Occult Blood Negative (NEGATIVE) Urine Nitrite Negative (NEGATIVE) Urine Bilirubin Negative (NEGATIVE) Urine Urobilinogen 0.2 (0.2) EU/dL Ur Leukocyte Esterase Negative (NEGATIVE) Influenza Type A RNA Negative (NEGATIVE) RSV RNA (INAAT) Negative (NEGATIVE) Influenza Type B RNA Negative (NEGATIVE) SARS-CoV-2 RNA (REJI) Positive H (NEGATIVE) 03/25/21 03/25/21 03/25/21 Range/Units 06:40 06:40 06:40 WBC 4.6 (4.0-10.0) x10^3/uL RBC 5.11 (4.5-6.0) x10^6/uL Hgb 15.9 (14.0-18.0) g/dL Hct 45.8 (40.0-52.0) % MCV 89.6 (78.0-93.0) fL MCH 31.1 (26.0-32.0) pg MCHC 34.7 (32.0-36.0) g/dL RDW Coeff of Mildred 13.2 (10.0-15.0) % Plt Count 159 (130-400) x10^3/uL Immature Gran % (Auto) 1.90 H (0.00-0.43) % Neut % (Auto) 84.1 H (50.0-80.0) % Lymph % (Auto) 10.6 L (25.0-50.0) % [place] % (Auto) 3.4 (2.0-11.0) % Eos % (Auto) 0.0 (0.0-4.0) % Baso % (Auto) 0.0 L (0.2-1.2) % Neut # (Auto) 3.9 (1.8-7.7) x10^3/uL Lymph # (Auto) 0.5 L (1.0-4.8) x10^3/uL [place] # (Auto) 0.2 (0.0-0.8) x10^3/uL Eos # (Auto) 0.0 (0.0-0.5) x10^3/uL Baso # (Auto) 0.0 (0.0-0.2) x10^3/uL Immature Gran # (Auto) 0.09 H (0.00-0.07) x10^3/uL D-Dimer, Quantitative (<=0.58) mg/LFEU Sodium 137 (136-145) mmol/L Potassium 4.5 (3.5-5.1) mmol/L Chloride 103 (98-107) mmol/L Carbon Dioxide 25 (21-32) mmol/L Anion Gap 13.5 (5-15) mmol/L BUN 21 H (7-18) mg/dL Creatinine 0.9 (0.70-1.30) mg/dL Est Cr Clr Drug Dosing 100.21 Estimated GFR (MDRD) > 60 Glucose 228 H (70-99) mg/dL Lactic Acid (0.4-2.0) mmol/L Calcium 8.9 (8.5-10.1) mg/dL Corrected Calcium 10.2 H (8.5-10.1) mg/dL Total Bilirubin 0.3 (0.2-1.0) mg/dL AST 27 (15-37) U/L ALT 78 H (16-63) U/L Alkaline Phosphatase 88 (46-116) U/L Troponin I High Sens (<=76) ng/L C-Reactive Protein 7.2 H (<=0.9) mg/dL Total Protein 6.6 (6.4-8.2) g/dL Albumin 2.4 L (3.4-5.0) g/dL Globulin 4.2 Albumin/Globulin Ratio 0.57 Procalcitonin (0.1-0.50) ng/mL Urine Color (YELLOW) Urine Appearance (CLEAR) Urine pH (5.0-8.0) Ur Specific [place] Urine Protein (NEGATIVE) mg/dL Urine Glucose (UA) (NEGATIVE) mg/dL Urine Ketones (NEGATIVE) mg/dL Urine Occult Blood (NEGATIVE) Urine Nitrite (NEGATIVE) Urine Bilirubin (NEGATIVE) Urine Urobilinogen (0.2) EU/dL Ur Leukocyte Esterase (NEGATIVE) Influenza Type A RNA (NEGATIVE) RSV RNA (INAAT) (NEGATIVE) Influenza Type B RNA (NEGATIVE) SARS-CoV-2 RNA (REJI) (NEGATIVE) 03/25/21 Range/Units 06:40 WBC (4.0-10.0) x10^3/uL RBC (4.5-6.0) x10^6/uL Hgb (14.0-18.0) g/dL Hct (40.0-52.0) % MCV (78.0-93.0) fL MCH (26.0-32.0) pg MCHC (32.0-36.0) g/dL RDW Coeff of Mildred (10.0-15.0) % Plt Count (130-400) x10^3/uL Immature Gran % (Auto) (0.00-0.43) % Neut % (Auto) (50.0-80.0) % Lymph % (Auto) (25.0-50.0) % [place] % (Auto) (2.0-11.0) % Eos % (Auto) (0.0-4.0) % Baso % (Auto) (0.2-1.2) % Neut # (Auto) (1.8-7.7) x10^3/uL Lymph # (Auto) (1.0-4.8) x10^3/uL [place] # (Auto) (0.0-0.8) x10^3/uL Eos # (Auto) (0.0-0.5) x10^3/uL Baso # (Auto) (0.0-0.2) x10^3/uL Immature Gran # (Auto) (0.00-0.07) x10^3/uL D-Dimer, Quantitative (<=0.58) mg/LFEU Sodium (136-145) mmol/L Potassium (3.5-5.1) mmol/L Chloride (98-107) mmol/L Carbon Dioxide (21-32) mmol/L Anion Gap (5-15) mmol/L BUN (7-18) mg/dL Creatinine (0.70-1.30) mg/dL Est Cr Clr Drug Dosing Estimated GFR (MDRD) Glucose (70-99) mg/dL Lactic Acid (0.4-2.0) mmol/L Calcium (8.5-10.1) mg/dL Corrected Calcium (8.5-10.1) mg/dL Total Bilirubin (0.2-1.0) mg/dL AST (15-37) U/L ALT (16-63) U/L Alkaline Phosphatase (46-116) U/L Troponin I High Sens (<=76) ng/L C-Reactive Protein (<=0.9) mg/dL Total Protein (6.4-8.2) g/dL Albumin (3.4-5.0) g/dL Globulin Albumin/Globulin Ratio Procalcitonin <0.05 L (0.1-0.50) ng/mL Urine Color (YELLOW) Urine Appearance (CLEAR) Urine pH (5.0-8.0) Ur Specific [place] Urine Protein (NEGATIVE) mg/dL Urine Glucose (UA) (NEGATIVE) mg/dL Urine Ketones (NEGATIVE) mg/dL Urine Occult Blood (NEGATIVE) Urine Nitrite (NEGATIVE) Urine Bilirubin (NEGATIVE) Urine Urobilinogen (0.2) EU/dL Ur Leukocyte Esterase (NEGATIVE) Influenza Type A RNA (NEGATIVE) RSV RNA (INAAT) (NEGATIVE) Influenza Type B RNA (NEGATIVE) SARS-CoV-2 RNA (REJI) (NEGATIVE) Result Diagrams: 03/25/21 06:40 03/25/21 06:40 Sepsis Event Note - Evaluation Sepsis Screening Result: No Definite Risk - Focused Exam Vital Signs: Vital Signs Temp Pulse Pulse Resp BP BP Pulse Ox 03/25/21 08:24 52 L 124/74 03/25/21 06:00 36.6 C 52 L 14 124/76 90 L 03/25/21 02:00 36.6 C 54 L 26 H 124/66 90 L 03/25/21 00:13 36.3 C 47 L 22 H 110/72 94 L - Problem List & Annotations (1) COVID-19 SNOMED Code(s): 490790559 Code(s): U07.1 - COVID-19 Status: Acute Current Visit: Yes (2) Pneumonia SNOMED Code(s): 260080385 Code(s): J18.9 - PNEUMONIA, UNSPECIFIED ORGANISM Status: Acute Current Visit: Yes Qualifiers: Pneumonia type: due to COVID-19 virus Qualified Code(s): U07.1 - COVID-19; J12.82 - Pneumonia due to coronavirus disease 2019 - Problem List Review Problem List Initiated/Reviewed/Updated: Yes - Assessment Assessment:: Covid 19 infection - day 17 Pneumonia - secondary bacterial Immunosuppressed - chronic prednisone and methotrexate use Rheumatoid arthritis - methotrexate on hold Hypertension - currently low, meds on hold - Plan Plan:: Will continue with current antibiotics - presumed secondary bacterial pneumonia. Continue with oxygen supplementation
[2021-03-25] MEDS: Azithromycin 250 MG Tab PO SCH (16:13)
[2021-03-25] MEDS: cefTRIAXone 1 GM Vial IVPUSH SCH (16:13)
[2021-03-25] MEDS: guaiFENesin 100 MG/5 ML Soln 10 ML UD Cup PO PRN ×2 (17:47→23:57)
[2021-03-25] MEDS: Enoxaparin 40 MG/0.4 ML Syringe SUBCUT SCH (17:47)
[2021-03-25] MEDS: atorvaSTATin 10 MG Tab PO SCH (20:39)
[2021-03-26 07:11] LABS: CHLORIDE,CL 104 mmol/L (98-107); SODIUM,NA 141 mmol/L (136-145)
[2021-03-26 07:12] LABS: ANION GAP 11.3 mmol/L (5-15)
[2021-03-26] MEDS: Cholecalciferol (Vitamin D3) 25 MCG Tab PO SCH (07:45)
[2021-03-26] MEDS: Zinc Sulfate 220 MG Cap PO SCH (07:45)
[2021-03-26] MEDS: dexAMETHasone 2 MG, dexAMETHasone 4 MG PO SCH ×2 (07:45)
[2021-03-26] MEDS: Magnesium Oxide 400 MG Tab PO SCH (07:46)
[2021-03-26] MEDS: Aspirin 81 MG Tab.EC PO SCH (07:46)
[2021-03-26] MEDS: Folic Acid 1 MG Tab PO SCH (07:46)
[2021-03-26] MEDS: Ascorbic Acid 500 MG Tab PO SCH ×2 (07:46→20:08)
[2021-03-26] MEDS: Metoprolol Succinate 50 MG Tab.ER PO SCH (07:47)
[2021-03-26] MEDS: guaiFENesin 100 MG/5 ML Soln 10 ML UD Cup PO PRN ×2 (07:59→20:34)
--- NOTE | 2021-03-26 09:30 | PCM.PN ---
- General Info Date of Service: 03/26/21 Admission Dx/Problem (Free Text): Patient on day #2 of hospitalization - Covid pneumonia in immune suppressed individual. Maintaining sats on room air. Spasmodic cough, generally nonproductive. Sputum for culture ordered but has not yet been obtained. Feels SOB with any activity. Notes he was able to increase his IS from 250 to 500 yesterday. Denies chest pains with rest. Has pain with coughing. describes appetite as normal. Has been urinating normal and had BM this AM Functional Status: Reports: Pain Controlled - Review of Systems General: Reports: Weakness HEENT: Reports: No Symptoms Pulmonary: Reports: Shortness of Breath, Cough Cardiovascular: Denies: Chest Pain Gastrointestinal: Denies: Abdominal Pain Genitourinary: Reports: No Symptoms Musculoskeletal: Reports: Joint Pain Skin: Reports: No Symptoms Neurological: Reports: No Symptoms Psychiatric: Reports: No Symptoms - Patient Data Vitals - Most Recent: Last Vital Signs Temp 36.8 C 03/26/21 06:30 Pulse 60 03/26/21 07:47 Resp 18 03/26/21 06:30 BP 142/90 H 03/26/21 07:47 Pulse Ox 94 L 03/26/21 06:30 Weight - Most Recent: 130.136 kg I&O - Last 24 Hours: Intake & Output 03/25/21 03/26/21 03/26/21 22:59 06:59 14:59 Intake Total 240 420 Balance 240 420 Lab Results Last 24 Hours: Laboratory Results - last 24 hr 03/26/21 Range/Units 06:15 Sodium 141 (136-145) mmol/L Potassium 4.3 (3.5-5.1) mmol/L Chloride 104 (98-107) mmol/L Carbon Dioxide 30 (21-32) mmol/L Anion Gap 11.3 (5-15) mmol/L BUN 25 H (7-18) mg/dL Creatinine 0.9 (0.70-1.30) mg/dL Est Cr Clr Drug Dosing 100.21 mL/min Estimated GFR (MDRD) > 60 Glucose 108 H (70-99) mg/dL Calcium 9.0 (8.5-10.1) mg/dL Corrected Calcium 10.2 H (8.5-10.1) mg/dL Total Bilirubin 0.4 (0.2-1.0) mg/dL AST 32 (15-37) U/L ALT 89 H (16-63) U/L Alkaline Phosphatase 89 (46-116) U/L Total Protein 6.5 (6.4-8.2) g/dL Albumin 2.5 L (3.4-5.0) g/dL Globulin 4.0 Albumin/Globulin Ratio 0.63 [facility] Results Last 24 Hours: Microbiology 03/24/21 15:00 Aerobic Blood Culture - Preliminary Blood - Venous - Lab Draw NO GROWTH AFTER 1 DAY Anaerobic Blood Culture - Preliminary NO GROWTH AFTER 1 DAY 03/24/21 14:54 Aerobic Blood Culture - Preliminary Blood - Venous NO GROWTH AFTER 1 DAY Anaerobic Blood Culture - Preliminary NO GROWTH AFTER 1 DAY Med Orders - Current: Current Medications Acetaminophen (Acetaminophen 325 Mg Tab) 650 mg PO Q4H PRN PRN Reason: Pain (Mild 1-3)/fever Last Admin: 03/25/21 20:40 Dose: 650 mg Documented by: Albuterol (Albuterol Hfa 18 Gm Inhaler) 0 gm INH Q4H [facility] Ascorbic Acid (Ascorbic Acid 500 Mg Tab) 500 mg PO BID [facility] Last Admin: 03/26/21 07:46 Dose: 500 mg Documented by: Aspirin (Aspirin 81 Mg Tab.Ec) 81 mg PO DAILY [facility] Last Admin: 03/26/21 07:46 Dose: 81 mg Documented by: Atorvastatin Calcium (Atorvastatin 10 Mg Tab) 20 mg PO BEDTIME [facility] Last Admin: 03/25/21 20:39 Dose: 20 mg Documented by: Azithromycin (Azithromycin 250 Mg Tab) 500 mg PO Q24H [facility] Last Admin: 03/25/21 16:13 Dose: 500 mg Documented by: Baricitinib (Baricitinib 2 Mg Tab) 4 mg PO DAILY [facility] Stop: 04/07/21 23:00 Last Admin: 03/26/21 07:50 Dose: 4 mg Documented by: Ceftriaxone Sodium (Ceftriaxone 1 Gm Vial) 1 gm IVPUSH Q24H [facility] Last Admin: 03/25/21 16:13 Dose: 1 gm Documented by: Cholecalciferol (Cholecalciferol (Vitamin D3) 25 Mcg Tab) 50 mcg PO DAILY [facility] Last Admin: 03/26/21 07:45 Dose: 50 mcg Documented by: Dexamethasone 2 mg/ (Dexamethasone 4 mg) 6 mg PO DAILY [facility] Last Admin: 03/26/21 07:45 Dose: 6 mg Documented by: Enoxaparin Sodium (Enoxaparin 40 Mg/0.4 Ml Syringe) 40 mg SUBCUT Q24H [facility] Last Admin: 03/25/21 17:47 Dose: 40 mg Documented by: Folic Acid (Folic Acid 1 Mg Tab) 1 mg PO DAILY [facility] Last Admin: 03/26/21 07:46 Dose: 1 mg Documented by: Guaifenesin (Guaifenesin 100 Mg/5 Ml Soln 10 Ml Ud Cup) 200 mg PO Q6H PRN PRN Reason: Cough Last Admin: 03/26/21 07:59 Dose: 200 mg Documented by: Magnesium Oxide (Magnesium Oxide 400 Mg Tab) 400 mg PO DAILY [facility] Last Admin: 03/26/21 07:46 Dose: 400 mg Documented by: Metoprolol Succinate (Metoprolol Succinate 50 Mg Tab.Er) 50 mg PO DAILY [facility] Last Admin: 03/26/21 07:47 Dose: 50 mg Documented by: Nitroglycerin (Nitroglycerin 0.4 Mg Tab.Sl) 0.4 mg SL ASDIRECTED PRN PRN Reason: Chest Pain Ondansetron HCl (Ondansetron 4 Mg Tab.Dis) 4 mg PO Q4H PRN PRN Reason: nausea, able to take PO Zinc Sulfate (Zinc Sulfate 220 Mg Cap) 220 mg PO DAILY [facility] Last Admin: 03/26/21 07:45 Dose: 220 mg Documented by: Discontinued Medications Dexamethasone (Dexamethasone 4 Mg/Ml Sdv) 4 mg IVPUSH ONETIME ONE Stop: 03/24/21 14:21 Last Admin: 03/24/21 14:23 Dose: 4 mg Documented by: Sodium Chloride (Normal Saline) 1,000 mls @ 250 mls/hr IV ASDIRECTED [facility] Last Admin: 03/24/21 11:55 Dose: 250 mls/hr Documented by: Ibuprofen (Ibuprofen 200 Mg Tab) 400 mg PO ONETIME ONE Stop: 03/24/21 13:04 Last Admin: 03/24/21 13:10 Dose: 400 mg Documented by: Iopamidol (Iopamidol 755 Mg/Ml 100 Ml Bottle) 100 ml IVPUSH ONETIME ONE Stop: 03/24/21 14:01 Last Admin: 03/24/21 14:04 Dose: 100 ml Documented by: Non-Formulary Medication (Metoprolol Succinate [Toprol Xl]) 100 mg PO DAILY [facility] - Exam General: Alert, Oriented, Mild Distress (Dyspneic) HEENT: Pupils Equal Neck: Supple Lungs: Decreased Breath Sounds Cardiovascular: Regular Rate, Regular Rhythm GI/Abdominal Exam: Normal Bowel Sounds Skin: Warm, Dry - Patient Data Lab Results Last 24 hrs: Laboratory Results - last 24 hr 03/26/21 Range/Units 06:15 Sodium 141 (136-145) mmol/L Potassium 4.3 (3.5-5.1) mmol/L Chloride 104 (98-107) mmol/L Carbon Dioxide 30 (21-32) mmol/L Anion Gap 11.3 (5-15) mmol/L BUN 25 H (7-18) mg/dL Creatinine 0.9 (0.70-1.30) mg/dL Est Cr Clr Drug Dosing 100.21 mL/min Estimated GFR (MDRD) > 60 Glucose 108 H (70-99) mg/dL Calcium 9.0 (8.5-10.1) mg/dL Corrected Calcium 10.2 H (8.5-10.1) mg/dL Total Bilirubin 0.4 (0.2-1.0) mg/dL AST 32 (15-37) U/L ALT 89 H (16-63) U/L Alkaline Phosphatase 89 (46-116) U/L Total Protein 6.5 (6.4-8.2) g/dL Albumin 2.5 L (3.4-5.0) g/dL Globulin 4.0 Albumin/Globulin Ratio 0.63 Result Diagrams: 03/25/21 06:40 03/26/21 06:15 [facility] Results Last 24 hrs: Microbiology 03/24/21 15:00 Aerobic Blood Culture - Preliminary Blood - Venous - Lab Draw NO GROWTH AFTER 1 DAY Anaerobic Blood Culture - Preliminary NO GROWTH AFTER 1 DAY 03/24/21 14:54 Aerobic Blood Culture - Preliminary Blood - Venous NO GROWTH AFTER 1 DAY Anaerobic Blood Culture - Preliminary NO GROWTH AFTER 1 DAY Sepsis Event Note - Evaluation Sepsis Screening Result: No Definite Risk - Focused Exam Vital Signs: Vital Signs Temp Pulse Pulse Resp BP BP Pulse Ox 03/26/21 07:47 60 142/90 H 03/26/21 06:30 36.8 C 53 L 18 142/90 H 94 L 03/26/21 02:22 36.8 C 45 L 14 123/74 93 L 03/25/21 22:44 36.7 C 64 14 134/65 93 L - Problem List & Annotations (1) COVID-19 SNOMED Code(s): 948085137 Code(s): U07.1 - COVID-19 Status: Acute Current Visit: Yes (2) Pneumonia SNOMED Code(s): 136343172 Code(s): J18.9 - PNEUMONIA, UNSPECIFIED ORGANISM Status: Acute Current Visit: Yes Qualifiers: Pneumonia type: due to COVID-19 virus Qualified Code(s): U07.1 - COVID-19; J12.82 - Pneumonia due to coronavirus disease 2019 (3) Immunosuppression due to chronic steroid use SNOMED Code(s): 197848100 Code(s): D84.821 - IMMUNODEFICIENCY DUE TO DRUGS; T38.0X5A - ADVERSE EFFECT OF GLUCOCORT/SYNTH ANALOG, INIT; 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 STEROIDS Status: Acute Current Visit: Yes - Problem List Review Problem List Initiated/Reviewed/Updated: Yes - My Orders Last 24 Hours: My Active Orders 03/25/21 17:36 guaiFENesin [Robitussin] 200 mg PO Q6H PRN 03/26/21 09:17 ABG [BLOOD GAS ARTERIAL] [BG] Routine 03/26/21 09:18 CBC W/O DIFF,HEMOGRAM [HEME] Routine 03/26/21 09:21 CMP [COMPREHENSIVE METABOLIC PN,CMP] [CHEM] Routine 03/26/21 09:22 DD [D-DIMER QUANTITATIVE] [COAG] Routine 03/26/21 09:30 Albuterol [Ventolin HFA] See Dose Instructions INH Q4H - Assessment Assessment:: Covid 19 infection - day 18 Pneumonia - possible secondary bacterial Immunosuppressed - chronic prednisone and methotrexate use Rheumatoid arthritis - methotrexate on hold Hypertension - currently low, meds on hold - Plan Plan:: Will obtain ABG's for further evaluation of oxygenation Start albuterol - states he was on this at home Noted to have elevated D dimer on admission - is on lovenox prophylaxis dose. Will recheck today Pt refused remdisnivir therapy Will repeat his chest xray today as well I have reached out to [facility] in [place]. Currently no beds available. Will seek ID consultation.
[2021-03-26 09:55] LABS: PCO2 ARTERIAL,POC 26 mmHg (35-48)
--- NOTE | 2021-03-26 10:10 | CR ---
[id number] RAD/RAD Chest PA And Lateral EXAM: RAD Chest PA And Lateral INDICATION: COUGH. COMPARISON: March 24, 2021. DISCUSSION: Cardiomediastinal silhouette is stable in size and contour. Persistent patchy pulmonary infiltrates bilaterally are not significantly changed. No pneumothorax or pleural effusion. IMPRESSION: Stable chest. Kenney Power DO 03/26/21 1009 Thank you for allowing us to participate in the care of your patient.
[2021-03-26] MEDS: Albuterol HFA 18 Gm Inhaler INH SCH ×4 (12:30→21:33)
[2021-03-26 14:02] LABS: PCO2 ARTERIAL,POC 29 mmHg (35-48)
[2021-03-26] MEDS ORDERED: Albuterol 0.083% 2.5 MG/3 ML Neb Soln NEB PRN (14:40)
[2021-03-26] MEDS: Azithromycin 250 MG Tab PO SCH (16:08)
[2021-03-26] MEDS: Albuterol/Ipratropium 3.0-0.5 MG/3 ML Neb Soln NEB SCH ×3 (16:09→23:43)
[2021-03-26] MEDS: cefTRIAXone 1 GM Vial IVPUSH SCH (16:09)
[2021-03-26] MEDS ORDERED: methylPREDNISolone Sod Succ 125 MG in Sodium Chloride 0.9% 100 ML IV SCH (17:00)
--- NOTE | 2021-03-26 17:04 | PCM.PN ---
- General Info Date of Service: 03/26/21 Admission Dx/Problem (Free Text): Patient on day #2 of hospitalization - Covid pneumonia in immune suppressed individual. Maintaining sats on room air. Spasmodic cough, generally nonproductive. Sputum for culture ordered but has not yet been obtained. Feels SOB with any activity. Notes he was able to increase his IS from 250 to 500 yesterday. Denies chest pains with rest. Has pain with coughing. describes appetite as normal. Has been urinating normal and had BM this AM Subjective Update: Patient states he is breathing easier with oxygen supplementation. - Review of Systems Pulmonary: Reports: Shortness of Breath, Cough Cardiovascular: Denies: Chest Pain Gastrointestinal: Denies: Abdominal Pain Genitourinary: Reports: No Symptoms - Patient Data Vitals - Most Recent: Last Vital Signs Temp 36.9 C 03/26/21 14:00 Pulse 53 L 03/26/21 14:00 Resp 18 03/26/21 06:30 BP 154/82 H 03/26/21 14:00 Pulse Ox 97 03/26/21 14:00 Weight - Most Recent: 130.136 kg I&O - Last 24 Hours: Intake & Output 03/26/21 03/26/21 03/26/21 06:59 14:59 22:59 Intake Total 600 Balance 600 Lab Results Last 24 Hours: Laboratory Results - last 24 hr 03/26/21 03/26/21 03/26/21 Range/Units 06:15 06:15 09:45 WBC 8.3 (4.0-10.0) x10^3/uL RBC 5.24 (4.5-6.0) x10^6/uL Hgb 16.0 (14.0-18.0) g/dL Hct 47.8 (40.0-52.0) % MCV 91.2 (78.0-93.0) fL MCH 30.5 (26.0-32.0) pg MCHC 33.5 (32.0-36.0) g/dL RDW Coeff of Mildred 13.2 (10.0-15.0) % Plt Count 176 (130-400) x10^3/uL D-Dimer, Quantitative 1.32 H (<=0.58) mg/LFEU POC ABG pH (7.35-7.45) pH POC ABG pCO2 (35-48) mmHg POC ABG pO2 (83-108) mmHg POC ABG HCO3 (21-28) mmol/L POC ABG Total CO2 (22-29) mmol/L POC ABG O2 Sat (94-98) % POC ABG Base Excess ((-2)-3) mmol/L POC FiO2 POC Blood Gas Comment Sodium 141 (136-145) mmol/L Potassium 4.3 (3.5-5.1) mmol/L Chloride 104 (98-107) mmol/L Carbon Dioxide 30 (21-32) mmol/L Anion Gap 11.3 (5-15) mmol/L BUN 25 H (7-18) mg/dL Creatinine 0.9 (0.70-1.30) mg/dL Est Cr Clr Drug Dosing 100.21 mL/min Estimated GFR (MDRD) > 60 Glucose 108 H (70-99) mg/dL Calcium 9.0 (8.5-10.1) mg/dL Corrected Calcium 10.2 H (8.5-10.1) mg/dL Total Bilirubin 0.4 (0.2-1.0) mg/dL AST 32 (15-37) U/L ALT 89 H (16-63) U/L Alkaline Phosphatase 89 (46-116) U/L Total Protein 6.5 (6.4-8.2) g/dL Albumin 2.5 L (3.4-5.0) g/dL Globulin 4.0 Albumin/Globulin Ratio 0.63 03/26/21 03/26/21 Range/Units 09:51 13:57 WBC (4.0-10.0) x10^3/uL RBC (4.5-6.0) x10^6/uL Hgb (14.0-18.0) g/dL Hct (40.0-52.0) % MCV (78.0-93.0) fL MCH (26.0-32.0) pg MCHC (32.0-36.0) g/dL RDW Coeff of Mildred (10.0-15.0) % Plt Count (130-400) x10^3/uL D-Dimer, Quantitative (<=0.58) mg/LFEU POC ABG pH 7.52 H 7.50 H (7.35-7.45) pH POC ABG pCO2 26 L 29 L (35-48) mmHg POC ABG pO2 59 L* 57 L* (83-108) mmHg POC ABG HCO3 21.0 22.6 (21-28) mmol/L POC ABG Total CO2 21.5 L 23.0 (22-29) mmol/L POC ABG O2 Sat 93.3 L 92.1 L (94-98) % POC ABG Base Excess -2 -1 ((-2)-3) mmol/L POC FiO2 21 28 POC Blood Gas Comment Called critical res Called critical res Sodium (136-145) mmol/L Potassium (3.5-5.1) mmol/L Chloride (98-107) mmol/L Carbon Dioxide (21-32) mmol/L Anion Gap (5-15) mmol/L BUN (7-18) mg/dL Creatinine (0.70-1.30) mg/dL Est Cr Clr Drug Dosing mL/min Estimated GFR (MDRD) Glucose (70-99) mg/dL Calcium (8.5-10.1) mg/dL Corrected Calcium (8.5-10.1) mg/dL Total Bilirubin (0.2-1.0) mg/dL AST (15-37) U/L ALT (16-63) U/L Alkaline Phosphatase (46-116) U/L Total Protein (6.4-8.2) g/dL Albumin (3.4-5.0) g/dL Globulin Albumin/Globulin Ratio [facility] Results Last 24 Hours: Microbiology 03/24/21 15:00 Aerobic Blood Culture - Preliminary Blood - Venous - Lab Draw NO GROWTH AFTER 2 DAYS Anaerobic Blood Culture - Preliminary NO GROWTH AFTER 2 DAYS 03/24/21 14:54 Aerobic Blood Culture - Preliminary Blood - Venous NO GROWTH AFTER 2 DAYS Anaerobic Blood Culture - Preliminary NO GROWTH AFTER 2 DAYS Med Orders - Current: Current Medications Acetaminophen (Acetaminophen 325 Mg Tab) 650 mg PO Q4H PRN PRN Reason: Pain (Mild 1-3)/fever Last Admin: 03/25/21 20:40 Dose: 650 mg Documented by: Albuterol (Albuterol Hfa 18 Gm Inhaler) 0 gm INH Q4H [facility] Last Admin: 03/26/21 14:51 Dose: 2 puff Documented by: Albuterol (Albuterol 0.083% 2.5 Mg/3 Ml Neb Soln) 2.5 mg NEB Q2H PRN PRN Reason: Shortness of Breath Albuterol/Ipratropium (Albuterol/Ipratropium 3.0-0.5 Mg/3 Ml Neb Soln) 3 ml NEB Q4HWA [facility] Last Admin: 03/26/21 16:09 Dose: 3 ml Documented by: Ascorbic Acid (Ascorbic Acid 500 Mg Tab) 500 mg PO BID [facility] Last Admin: 03/26/21 07:46 Dose: 500 mg Documented by: Aspirin (Aspirin 81 Mg Tab.Ec) 81 mg PO DAILY [facility] Last Admin: 03/26/21 07:46 Dose: 81 mg Documented by: Atorvastatin Calcium (Atorvastatin 10 Mg Tab) 20 mg PO BEDTIME [facility] Last Admin: 03/25/21 20:39 Dose: 20 mg Documented by: Azithromycin (Azithromycin 250 Mg Tab) 500 mg PO Q24H [facility] Last Admin: 03/26/21 16:08 Dose: 500 mg Documented by: Baricitinib (Baricitinib 2 Mg Tab) 4 mg PO DAILY [facility] Stop: 04/07/21 23:00 Last Admin: 03/26/21 07:50 Dose: 4 mg Documented by: Ceftriaxone Sodium (Ceftriaxone 1 Gm Vial) 1 gm IVPUSH Q24H [facility] Last Admin: 03/26/21 16:09 Dose: 1 gm Documented by: Cholecalciferol (Cholecalciferol (Vitamin D3) 25 Mcg Tab) 50 mcg PO DAILY [facility] Last Admin: 03/26/21 07:45 Dose: 50 mcg Documented by: Dexamethasone 2 mg/ (Dexamethasone 4 mg) 6 mg PO DAILY [facility] Last Admin: 03/26/21 07:45 Dose: 6 mg Documented by: Enoxaparin Sodium (Enoxaparin 40 Mg/0.4 Ml Syringe) 40 mg SUBCUT Q24H [facility] Last Admin: 03/25/21 17:47 Dose: 40 mg Documented by: Folic Acid (Folic Acid 1 Mg Tab) 1 mg PO DAILY [facility] Last Admin: 03/26/21 07:46 Dose: 1 mg Documented by: Guaifenesin (Guaifenesin 100 Mg/5 Ml Soln 10 Ml Ud Cup) 200 mg PO Q6H PRN PRN Reason: Cough Last Admin: 03/26/21 07:59 Dose: 200 mg Documented by: Magnesium Oxide (Magnesium Oxide 400 Mg Tab) 400 mg PO DAILY [facility] Last Admin: 03/26/21 07:46 Dose: 400 mg Documented by: Metoprolol Succinate (Metoprolol Succinate 50 Mg Tab.Er) 50 mg PO DAILY [facility] Last Admin: 03/26/21 07:47 Dose: 50 mg Documented by: Nitroglycerin (Nitroglycerin 0.4 Mg Tab.Sl) 0.4 mg SL ASDIRECTED PRN PRN Reason: Chest Pain Ondansetron HCl (Ondansetron 4 Mg Tab.Dis) 4 mg PO Q4H PRN PRN Reason: nausea, able to take PO Zinc Sulfate (Zinc Sulfate 220 Mg Cap) 220 mg PO DAILY [facility] Last Admin: 03/26/21 07:45 Dose: 220 mg Documented by: Discontinued Medications Dexamethasone (Dexamethasone 4 Mg/Ml Sdv) 4 mg IVPUSH ONETIME ONE Stop: 03/24/21 14:21 Last Admin: 03/24/21 14:23 Dose: 4 mg Documented by: Sodium Chloride (Normal Saline) 1,000 mls @ 250 mls/hr IV ASDIRECTED [facility] Last Admin: 03/24/21 11:55 Dose: 250 mls/hr Documented by: Ibuprofen (Ibuprofen 200 Mg Tab) 400 mg PO ONETIME ONE Stop: 03/24/21 13:04 Last Admin: 03/24/21 13:10 Dose: 400 mg Documented by: Iopamidol (Iopamidol 755 Mg/Ml 100 Ml Bottle) 100 ml IVPUSH ONETIME ONE Stop: 03/24/21 14:01 Last Admin: 03/24/21 14:04 Dose: 100 ml Documented by: Non-Formulary Medication (Metoprolol Succinate [Toprol Xl]) 100 mg PO DAILY [facility] - Patient Data Lab Results Last 24 hrs: Laboratory Results - last 24 hr 03/26/21 03/26/21 03/26/21 Range/Units 06:15 06:15 09:45 WBC 8.3 (4.0-10.0) x10^3/uL RBC 5.24 (4.5-6.0) x10^6/uL Hgb 16.0 (14.0-18.0) g/dL Hct 47.8 (40.0-52.0) % MCV 91.2 (78.0-93.0) fL MCH 30.5 (26.0-32.0) pg MCHC 33.5 (32.0-36.0) g/dL RDW Coeff of Mildred 13.2 (10.0-15.0) % Plt Count 176 (130-400) x10^3/uL D-Dimer, Quantitative 1.32 H (<=0.58) mg/LFEU POC ABG pH (7.35-7.45) pH POC ABG pCO2 (35-48) mmHg POC ABG pO2 (83-108) mmHg POC ABG HCO3 (21-28) mmol/L POC ABG Total CO2 (22-29) mmol/L POC ABG O2 Sat (94-98) % POC ABG Base Excess ((-2)-3) mmol/L POC FiO2 POC Blood Gas Comment Sodium 141 (136-145) mmol/L Potassium 4.3 (3.5-5.1) mmol/L Chloride 104 (98-107) mmol/L Carbon Dioxide 30 (21-32) mmol/L Anion Gap 11.3 (5-15) mmol/L BUN 25 H (7-18) mg/dL Creatinine 0.9 (0.70-1.30) mg/dL Est Cr Clr Drug Dosing 100.21 mL/min Estimated GFR (MDRD) > 60 Glucose 108 H (70-99) mg/dL Calcium 9.0 (8.5-10.1) mg/dL Corrected Calcium 10.2 H (8.5-10.1) mg/dL Total Bilirubin 0.4 (0.2-1.0) mg/dL AST 32 (15-37) U/L ALT 89 H (16-63) U/L Alkaline Phosphatase 89 (46-116) U/L Total Protein 6.5 (6.4-8.2) g/dL Albumin 2.5 L (3.4-5.0) g/dL Globulin 4.0 Albumin/Globulin Ratio 0.63 03/26/21 03/26/21 Range/Units 09:51 13:57 WBC (4.0-10.0) x10^3/uL RBC (4.5-6.0) x10^6/uL Hgb (14.0-18.0) g/dL Hct (40.0-52.0) % MCV (78.0-93.0) fL MCH (26.0-32.0) pg MCHC (32.0-36.0) g/dL RDW Coeff of Mildred (10.0-15.0) % Plt Count (130-400) x10^3/uL D-Dimer, Quantitative (<=0.58) mg/LFEU POC ABG pH 7.52 H 7.50 H (7.35-7.45) pH POC ABG pCO2 26 L 29 L (35-48) mmHg POC ABG pO2 59 L* 57 L* (83-108) mmHg POC ABG HCO3 21.0 22.6 (21-28) mmol/L POC ABG Total CO2 21.5 L 23.0 (22-29) mmol/L POC ABG O2 Sat 93.3 L 92.1 L (94-98) % POC ABG Base Excess -2 -1 ((-2)-3) mmol/L POC FiO2 21 28 POC Blood Gas Comment Called critical res Called critical res Sodium (136-145) mmol/L Potassium (3.5-5.1) mmol/L Chloride (98-107) mmol/L Carbon Dioxide (21-32) mmol/L Anion Gap (5-15) mmol/L BUN (7-18) mg/dL Creatinine (0.70-1.30) mg/dL Est Cr Clr Drug Dosing mL/min Estimated GFR (MDRD) Glucose (70-99) mg/dL Calcium (8.5-10.1) mg/dL Corrected Calcium (8.5-10.1) mg/dL Total Bilirubin (0.2-1.0) mg/dL AST (15-37) U/L ALT (16-63) U/L Alkaline Phosphatase (46-116) U/L Total Protein (6.4-8.2) g/dL Albumin (3.4-5.0) g/dL Globulin Albumin/Globulin Ratio Result Diagrams: 03/26/21 06:15 03/26/21 06:15 [facility] Results Last 24 hrs: Microbiology 03/24/21 15:00 Aerobic Blood Culture - Preliminary Blood - Venous - Lab Draw NO GROWTH AFTER 2 DAYS Anaerobic Blood Culture - Preliminary NO GROWTH AFTER 2 DAYS 03/24/21 14:54 Aerobic Blood Culture - Preliminary Blood - Venous NO GROWTH AFTER 2 DAYS Anaerobic Blood Culture - Preliminary NO GROWTH AFTER 2 DAYS Sepsis Event Note - Evaluation Sepsis Screening Result: No Definite Risk - Focused Exam Vital Signs: Vital Signs Temp Pulse Pulse Resp BP BP Pulse Ox 03/26/21 14:00 36.9 C 53 L 154/82 H 97 03/26/21 10:00 36.3 C 71 139/93 H 99 03/26/21 07:47 60 142/90 H 03/26/21 06:30 36.8 C 53 L 18 142/90 H 94 L - Problem List & Annotations (1) COVID-19 SNOMED Code(s): 955377286 Code(s): U07.1 - COVID-19 Status: Acute Current Visit: Yes (2) Pneumonia SNOMED Code(s): 443697741 Code(s): J18.9 - PNEUMONIA, UNSPECIFIED ORGANISM Status: Acute Current Visit: Yes Qualifiers: Pneumonia type: due to COVID-19 virus Qualified Code(s): U07.1 - COVID-19; J12.82 - Pneumonia due to coronavirus disease 2019 (3) Immunosuppression due to chronic steroid use SNOMED Code(s): 924056698 Code(s): D84.821 - IMMUNODEFICIENCY DUE TO DRUGS; T38.0X5A - ADVERSE EFFECT OF GLUCOCORT/SYNTH ANALOG, INIT; Z79.52 - RETIREMENT (CURRENT) USE OF SYSTEMIC STEROIDS Status: Acute Current Visit: Yes - Problem List Review Problem List Initiated/Reviewed/Updated: Yes - My Orders Last 24 Hours: My Active Orders 03/25/21 17:36 guaiFENesin [Robitussin] 200 mg PO Q6H PRN 03/26/21 09:30 Albuterol [Ventolin HFA] See Dose Instructions INH Q4H 03/26/21 17:00 methylPREDNISolone Sod Succ [Solu-MEDROL] 125 mg Sodium Chloride 0.9% [Normal Saline] 100 ml IV Q6H - Assessment Assessment:: Covid 19 infection - day 18 Covid pneumonia - will stop antibiotics Immunosuppressed - chronic prednisone and methotrexate use - will change decadron to solu-medrol Inflammatory arthritis - methotrexate on hold Hypertension - controlled - Plan Plan:: Will discontinue antibiotics Discontinue decadron - start solumedrol Recheck ABG's in AM
[2021-03-26] MEDS ORDERED: methylPREDNISolone Sodium Succinate 125 MG/2 ML SDV IV SCH (18:00)
[2021-03-26] MEDS: methylPREDNISolone Sodium Succinate 125 MG/2 ML SDV IVPUSH SCH ×2 (18:06→23:35)
[2021-03-26] MEDS: Enoxaparin 40 MG/0.4 ML Syringe SUBCUT SCH (18:08)
[2021-03-26] MEDS: atorvaSTATin 10 MG Tab PO SCH (20:08)
[2021-03-27] MEDS: Albuterol HFA 18 Gm Inhaler INH SCH ×6 (01:42→21:45)
[2021-03-27] MEDS: Albuterol/Ipratropium 3.0-0.5 MG/3 ML Neb Soln NEB SCH ×5 (04:17→20:16)
[2021-03-27 07:13] LABS: CHLORIDE,CL 101 mmol/L (98-107); SODIUM,NA 138 mmol/L (136-145)
[2021-03-27 07:14] LABS: ANION GAP 16.1 mmol/L (5-15)
[2021-03-27] MEDS: Folic Acid 1 MG Tab PO SCH (07:54)
[2021-03-27] MEDS: Aspirin 81 MG Tab.EC PO SCH (07:54)
[2021-03-27] MEDS: Magnesium Oxide 400 MG Tab PO SCH (07:54)
[2021-03-27] MEDS: Cholecalciferol (Vitamin D3) 25 MCG Tab PO SCH (07:54)
[2021-03-27] MEDS: Metoprolol Succinate 50 MG Tab.ER PO SCH (07:55)
[2021-03-27] MEDS: Zinc Sulfate 220 MG Cap PO SCH (07:55)
[2021-03-27] MEDS: Ascorbic Acid 500 MG Tab PO SCH ×2 (07:55→20:15)
[2021-03-27] MEDS: methylPREDNISolone Sodium Succinate 125 MG/2 ML SDV IVPUSH SCH ×3 (07:58→17:36)
[2021-03-27 08:27] LABS: PCO2 ARTERIAL,POC 29 mmHg (35-48)
--- NOTE | 2021-03-27 11:53 | PN ---
Progress Note for EDWIN LOZADA Date: 03/27/2021 Room #: [facility] CHIEF COMPLAINT: Shortness of breath. SUBJECTIVE: Hospital day #3 on a 61-year-old male patient, who was admitted to the acute care floor at [facility] for acute respiratory failure with hypoxia secondary to COVID pneumonia. The patient continues to require oxygen anywhere from 2 to 4 L to keep sats greater than 90%. The patient still has considerable shortness of breath. He has a dry nonproductive cough. The patient denies any chest pain or palpitations. No leg swelling. The patient denies any headaches, dizziness, or lightheadedness. No fevers or chills. The patient's shortness of breath is worse with activity/ambulation. The patient is feeling very fatigued and weak. The patient has not had any abdominal pain. No nausea, vomiting, or diarrhea. No skin concerns. He has pain with coughing. Appetite has been okay. The patient has been using his incentive spirometer. He states he did get his IS to 750 on one occasion. REVIEW OF SYSTEMS: See HPI. PHYSICAL EXAMINATION: Vital Signs: Temperature 97.7, pulse 55, blood pressure 148/80, respiratory rate is 18, oxygen saturation 93% on 2 L. Skin: Intact, warm, and dry. Respiratory: The patient has fine crackles in the bases, otherwise decreased. The patient is tachypneic. Cardiovascular: Regular rate and rhythm. No murmur. Abdomen: Bowel sounds are hypoactive x4. Abdomen is obese. Abdomen is soft and nontender. Extremities: No edema. Neurological: The patient is alert. The patient is oriented to person, place, and time. LABORATORY STUDIES: 1. CBC: White blood cell count 6.5, hemoglobin 16.2, hematocrit 47.9, platelets 192,000. 2. CMP: Sodium 138, potassium 4.1, chloride 101, CO2 of 25, anion gap 16.1, BUN 22, creatinine 1.1, GFR greater than 60, glucose 184, calcium 9.0, AST 36, ALT 116, alkaline phosphatase 90, total protein 6.7. ASSESSMENT: 1. Acute respiratory failure with hypoxia secondary to coronavirus disease 2019, day 19 from his monoclonal antibody infusion. The patient is immunosuppressed, being on methotrexate and prednisone. 2. Essential hypertension. 3. Mixed hyperlipidemia. 4. Mild liver function test elevation. 5. Obesity. 6. Rheumatoid arthritis. Continue to hold methotrexate. PLAN: The patient will continue on acute cares. Continue with current diet. Will continue to await a bed in [place]. The patient needs further workup with Pulmonary and Cardiology. Continue all other orders the same. Continue to wean oxygen for saturations greater than 90%. Encourage the patient to ambulate as much as possible. The patient is a code 1. The patient does wish to transfer to a higher level of care should the need arise. Recheck ABG today. Recheck laboratory work tomorrow. This patient was seen and examined by me as an [facility] provider. Total time for care and coordination, greater than 30 minutes. TB: 03/27/2021 07:53:03 MODL: 03/27/2021 08:26:06 /[id number]
[2021-03-27] MEDS: Enoxaparin 40 MG/0.4 ML Syringe SUBCUT SCH (17:35)
[2021-03-27] MEDS: atorvaSTATin 10 MG Tab PO SCH (20:15)
[2021-03-27] MEDS: guaiFENesin 100 MG/5 ML Soln 10 ML UD Cup PO PRN (21:51)
[2021-03-28] MEDS: Albuterol/Ipratropium 3.0-0.5 MG/3 ML Neb Soln NEB SCH ×6 (00:23→21:24)
[2021-03-28] MEDS: methylPREDNISolone Sodium Succinate 125 MG/2 ML SDV IVPUSH SCH ×2 (00:23→06:39)
[2021-03-28] MEDS: Albuterol HFA 18 Gm Inhaler INH SCH ×2 (03:15→06:39)
--- NOTE | 2021-03-28 08:28 | CR ---
[id number] RAD/RAD Chest PA And Lateral EXAM: RAD Chest PA And Lateral INDICATION: SOB, HYPOXIA COMPARISON: March 26, 2021. DISCUSSION/IMPRESSION: Cardiomegaly and central vascular congestion similar to the prior examination. Scattered patchy areas of parenchymal opacification in both lungs. Findings include both linear and geographic appearing opacities. Parenchymal opacities have slightly increased compared to the prior examination. Findings are nonspecific. Correlate for signs of infection as this could represent pneumonia, including COVID pneumonia. Pulmonary edema is also possible, correlate for other signs of fluid retention. Maykel Thomson MD 03/28/21 0855 Thank you for allowing us to participate in the care of your patient.
[2021-03-28 08:51] LABS: CHLORIDE,CL 101 mmol/L (98-107); SODIUM,NA 137 mmol/L (136-145)
[2021-03-28 09:05] LABS: ANION GAP 16.1 mmol/L (5-15)
[2021-03-28] MEDS: Zinc Sulfate 220 MG Cap PO SCH (09:09)
[2021-03-28] MEDS: Magnesium Oxide 400 MG Tab PO SCH (09:09)
[2021-03-28] MEDS: Cholecalciferol (Vitamin D3) 25 MCG Tab PO SCH (09:09)
[2021-03-28] MEDS: Ascorbic Acid 500 MG Tab PO SCH ×2 (09:09→19:53)
[2021-03-28] MEDS: Aspirin 81 MG Tab.EC PO SCH (09:10)
[2021-03-28] MEDS: Folic Acid 1 MG Tab PO SCH (09:10)
[2021-03-28] MEDS: Metoprolol Succinate 50 MG Tab.ER PO SCH (09:11)
[2021-03-28] MEDS ORDERED: Albuterol HFA 18 Gm Inhaler INH PRN (09:11)
[2021-03-28] MEDS ORDERED: Codeine/guaiFENesin 10-100 MG/5 ML Syrup 5 ML Cup PO PRN (09:11)
[2021-03-28] MEDS ORDERED: Furosemide 40 MG/4 ML VIAL IV ONE (11:35)
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
[2021-03-28 12:29] LABS: PCO2 ARTERIAL,POC 29 mmHg (35-48)
[2021-03-28 12:42] LABS: ACETAMINOPHEN 0 ug/ml (10-30)
[2021-03-28] MEDS ORDERED: LORazepam 2 MG/ML SDV IVPUSH PRN (16:41)
[2021-03-28] MEDS: Enoxaparin 40 MG/0.4 ML Syringe SUBCUT SCH (19:39)
[2021-03-28] MEDS: atorvaSTATin 10 MG Tab PO SCH (19:53)
[2021-03-28] MEDS ORDERED: Sodium Chloride 0.9% 500 ML IV ONE (21:28)
[2021-03-29] MEDS: Albuterol/Ipratropium 3.0-0.5 MG/3 ML Neb Soln NEB SCH ×7 (00:01→23:58)
[2021-03-29] MEDS: Aspirin 81 MG Tab.EC PO SCH (08:35)
[2021-03-29] MEDS: Cholecalciferol (Vitamin D3) 25 MCG Tab PO SCH (08:35)
[2021-03-29] MEDS: Zinc Sulfate 220 MG Cap PO SCH (08:35)
[2021-03-29] MEDS: Folic Acid 1 MG Tab PO SCH (08:36)
[2021-03-29] MEDS: methylPREDNISolone Sodium Succinate 40 MG/1 ML SDV IVPUSH SCH (08:36)
[2021-03-29] MEDS: Magnesium Oxide 400 MG Tab PO SCH (08:36)
[2021-03-29] MEDS: Ascorbic Acid 500 MG Tab PO SCH ×2 (08:36→20:06)
[2021-03-29 08:45] LABS: ANION GAP 10.4 mmol/L (5-15); CHLORIDE,CL 101 mmol/L (98-107); SODIUM,NA 137 mmol/L (136-145)
[2021-03-29 09:53] LABS: PCO2 ARTERIAL,POC 28 mmHg (35-48)
[2021-03-29] MEDS ORDERED: Sodium Chloride 0.9% 1,000 ML IV ONE (09:55)
[2021-03-29] MEDS: Metoprolol Succinate 50 MG Tab.ER PO SCH (10:15)
[2021-03-29] MEDS: Lisinopril 10 MG Tab PO SCH (10:16)
[2021-03-29] MEDS ORDERED: LORazepam 2 MG/ML SDV IVPUSH PRN (10:56)
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
[2021-03-29 14:40] LABS: PCO2 ARTERIAL,POC 36 mmHg (35-48)
[2021-03-29] MEDS: Enoxaparin 40 MG/0.4 ML Syringe SUBCUT SCH (18:38)
[2021-03-29] MEDS: atorvaSTATin 10 MG Tab PO SCH (20:06)
[2021-03-30] MEDS: Albuterol/Ipratropium 3.0-0.5 MG/3 ML Neb Soln NEB SCH ×3 (05:00→12:42)
[2021-03-30 08:52] LABS: CHLORIDE,CL 101 mmol/L (98-107); SODIUM,NA 138 mmol/L (136-145)
[2021-03-30 08:53] LABS: ANION GAP 12.2 mmol/L (5-15)
[2021-03-30] MEDS: Folic Acid 1 MG Tab PO SCH (09:18)
[2021-03-30] MEDS: Ascorbic Acid 500 MG Tab PO SCH (09:18)
[2021-03-30] MEDS: Cholecalciferol (Vitamin D3) 25 MCG Tab PO SCH (09:18)
[2021-03-30] MEDS: Aspirin 81 MG Tab.EC PO SCH (09:18)
[2021-03-30] MEDS: Zinc Sulfate 220 MG Cap PO SCH (09:19)
[2021-03-30] MEDS: Magnesium Oxide 400 MG Tab PO SCH (09:19)
[2021-03-30] MEDS: methylPREDNISolone Sodium Succinate 40 MG/1 ML SDV IVPUSH SCH (09:19)
[2021-03-30] MEDS: Metoprolol Succinate 50 MG Tab.ER PO SCH (09:20)
[2021-03-30] MEDS: Lisinopril 10 MG Tab PO SCH (09:20)
[2021-03-30 09:42] VITALS: BP 127/60; PULSE 63
[2021-03-30 10:07] LABS: PCO2 ARTERIAL,POC 33 mmHg (35-48)
[2021-03-30] MEDS ORDERED: Sodium Chloride 0.9% 1,000 ML IV ONE (10:45)
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
--- NOTE | 2021-03-31 18:20 | PCM.EKG ---
#1 Interpretation EKG Date: 03/28/21 Time: 15:33 Rhythm: NSR Rate (Beats/Min): 63 [place]: Normal P-Wave: Present QRS: RBBB ST-T: Normal QT: Normal AK/PQ Interval: 0.20 Comparison: No Change EKG Interpretation Comments: NSR RBBB Possible LVH
== END 2021-03-30 13:20 | disposition home or self-care (01) | DRG 177 ==
LOC: VM.ED 11:37 → VM.MS 15:05
PROVIDERS: ADMIT Internal Medicine; ATTEND Nurse Practitioner Family
PROC: 3E0DX3Z Introduction of Anti-inflammatory into Mouth and Pharynx, External Approach (ICD-10-PCS; principal; 2021-03-24)
PROC: XW0DXM6 Introduction of Baricitinib into Mouth and Pharynx, External Approach, New Technology Group 6 (ICD-10-PCS; 2021-03-24)
PROC: 5A09557 Assistance with Respiratory Ventilation, Greater than 96 Consecutive Hours, Continuous Positive Airway Pressure (ICD-10-PCS; 2021-03-24)
DX: U07.1 COVID-19 (principal); J96.01 Acute respiratory failure with hypoxia; J12.82 Pneumonia due to coronavirus disease 2019; D84.9 Immunodeficiency, unspecified; I95.9 Hypotension, unspecified; I10 Essential (primary) hypertension; E78.2 Mixed hyperlipidemia; R74.8 Abnormal levels of other serum enzymes; E66.9 Obesity, unspecified; T59.811A Toxic effect of smoke, accidental (unintentional), initial encounter; T38.0X5A Adverse effect of glucocorticoids and synthetic analogues, initial encounter; M06.9 Rheumatoid arthritis, unspecified; Z88.5 Allergy status to narcotic agent; Z91.030 Bee allergy status; Z79.899 Other long term (current) drug therapy; Z79.52 Long term (current) use of systemic steroids
CPT/HCPCS: 0241U; 36415; 36600; 71045; 71046; 71275; 80053; 80143; 80179; 81003; 82375; 82550; 82600; 82803; 83605; 83880; 84145; 84484; 85025; 85027; 85379; 86140; 87040; 87070; 87077; 87186; 87205; 93005; 94640; 94660; 94760; 96374; 99285-25; A9270-GY; J0696; J1100; J1650; J1940; J2060; J2920; J2930; J7030; J7620-GY; J8540; Q9967